=== PATIENT | male | born 1965 | race Caucasian/White ===

== ENCOUNTER → 2019-05-31 | Day surgery (SDC) | payer BC ==
[~2019-05-31] MED LIST: ACETAMINOPHEN 1000 MG/100 ML IV ONE; APRISO0.375 GM PO; ATORVASTATIN CA20 MG PO; BLOOD PRESSURE; BUPIVACAINE HCL 0.5% INJ 30 ML VIAL INJ ONE; CEFAZOLIN SOD 1 GM/NS 50ML 100 ML IV ONE; DEXAMETHASONE SOD PHOS INJ 4 MG/ML VIAL ONE; FENTANYL1 EAC1 TOP; GLYCOPYRROLATE INJ 1MG/ 5 ML SYR ONE; HYDROCODONE/APAP 5MG-325MG TAB ONE; HYDROMORPHONE 1MG/1ML INJ ONE; HYDROMORPHONE 2MG/ML 2 MG/ML ML ONE; KETOROLAC TROMETHAMINE 30 MG/ML VIAL ONE; LIDOCAINE 2%/ EPINEPHRINE 20ML MDV ONE; LIDOCAINE HCL 2% LOCAL INJ 5 ML SDV VIAL INJ ONE; MIDAZOLAM HCL 2 MG/2 ML VIAL ONE; ONDANSETRON HCL INJ 2MG/ML 2ML 2 MG/ML VIAL ONE; PROPOFOL IV EMULSION 10 MG/ML 20 ML VIAL ONE; ROPIVACAINE 0.5% 5 MG/ML 30 ML SDV ONE; SEVOFLURANE INHAL SOLN 250 ML PEN BTL ONE; ULTRAM50 MG PO
--- OUTSIDE RECORDS SUMMARY | 2019-05-31 06:11 | XMS REPORT | Encounter Summary ---
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 Gerber Padilla 3 [phone] Reason for Visit other - see typed reason Instructions 1. Acute meniscal tear, lateral hydrocodone 5 mg-acetaminophen 325 mg tablet orthopedic referral 2. Chronic insomnia 3. Generalized anxiety disorder zolpidem 10 mg tablet 4. Depression screening learning about depression 5. Body mass index 25-29 - overweight learning about healthy weight 6. Ulcerative colitis Discussion Note: None recorded. Plan of Care Reminders Provider Appointments None recorded. Lab None recorded. Referral Orthopedic Referral 12/17/2018 Procedures None recorded. Surgeries None recorded. Imaging None recorded. Medications Name Start Date azelastine 137 mcg (0.1 %) nasal spray aerosol Cutler 1 spray every day by nasal route as needed for 30 days. escitalopram 10 mg tablet take 1 tablet po daily hydrocodone 5 mg-acetaminophen 325 mg tablet Take 1 tablet every 6 hours by oral route. prednisone 10 mg tablet Take 1 tablet every day by oral route. zolpidem 10 mg tablet Take 1 tablet every day by oral route. Medications Administered None recorded. Vitals Height Weight BMI Blood Pressure 6 ft 3 in 222.6 lbs 27.8 kg/m2 (1) 142/92 mm[Hg] (2) 140/88 mm[Hg] Lab Results None recorded. Allergies Code Code System Name Reaction Severity Status Onset NKDA Problems Name Status Onset Date Source Generalized Anxiety Disorder Active 12/17/2018 Ulcerative Colitis Active 12/17/2018 Chronic Insomnia Active 12/17/2018 Procedures None recorded. Vaccine List None recorded. Social History Smoking Status Never Smoker Past Encounters 12/17/2018 Acute Meniscal Tear, Lateral; Chronic Insomnia; Generalized Anxiety Disorder; Depression Screening; Body Mass Index 25-29 - Overweight; Ulcerative Colitis Eliu Larry MD: [id number] [facility], [address], [place] [address], Ph. History of Present Illness Knee Reported By: Patient HPI: Location: right, anterior, lateral; s/p meniscal repair for same area. Quality: aching, stabbing. Severity: moderate, pain level 6/10. Duration: 17 days. Context: bending; onset after doing body squat. Aggravating Factors: weight bearing. Associated Symptoms: no weakness, no numbness, no tingling, no redness, no warmth, no catching/locking, no instability, swelling, popping/clicking. Previous Surgery: surgical procedure: Anxiety/Depression Reported By: Patient Notes: Doing well w current Tx Review of Systems Comprehensive General Adult ROS Reported By: Patient Constitutional: Constitutional: no significant weight gain, weight loss (10 lbs) Respiratory: Respiratory: no shortness of breath Gastrointestinal: Gastrointestinal: no abdominal pain, no nausea, no vomiting, normal appetite Neurologic: Neurologic: no weakness, no numbness, no dizziness, no headaches Psychiatric: Psych: no depression, no alcohol abuse, no anxiety, no suicidal thoughts, sleep disturbances Endocrine: Endocrine: no fatigue Physical Exam General Adult Exam (male) Reported By: Patient Constitutional: Level of Distress: NAD Psychiatric: Mental Status: active and alert. Orientation: to time, to place, to person Eyes: Pupils: PERRLA. EOM: EOMI Lungs: Respiratory effort: no dyspnea. Auscultation: breath sounds normal Cardiovascular: Heart Auscultation: RRR, no murmurs. Pulses including femoral / pedal: normal throughout Abdomen: Bowel Sounds: normal. Inspection and Palpation: soft, no tenderness, no masses. Liver: non-tender, no hepatomegaly. Spleen: non-tender, no splenomegaly Musculoskeletal:: Motor Strength and Tone: normal. Joints, Bones, and Muscles: normal movement of all extremities, tenderness. Extremities: no edema Neurologic: Gait and Station: irregular gait. Cranial Nerves: grossly intact. Sensation: grossly intact. Reflexes: DTRs 2+ bilaterally throughout
--- OUTSIDE RECORDS SUMMARY | 2019-05-31 06:11 | XMS REPORT | Clinical Summary ---
Author Author [facility] Organization [facility] Address Unknown Phone Unavailable Care Team Providers Care Accounts Receivable Specialist Name Role Phone Eliu Larry MD PCP Allergies No Known Allergies Medications End Date Status Medication Sig Dispensed Refills Start Date Active APRISO 0.375 gram 24 hr TAKE 4 3 capsule CAPSULES BY 6 MOUTH EVERY DAY Active HYDROcodone-acetaminophen TAKE 1 TABLET 0 (XODOL) 5-300 mg per BY MOUTH 8 tablet EVERY 4 TO 6 HOURS NEEDED FOR PAIN Active tadalafil (CIALIS) 20 mg Take 1 tablet 27 tablet 2 tablet (20 mg total) 8 by mouth daily as needed for erectile dysfunction. Active cetirizine-pseudoepHEDrin Take 1 tablet 60 tablet 11 e (ZyrTEC-D) 5-120 mg per by mouth 2 8 12 hr tablet (two) times a day. Active atorvastatin (LIPITOR) 20 TAKE 1 TABLET 90 tablet 1 MG tablet BY MOUTH 8 EVERY DAY Active dextromethorphan-guaifene Take 1 tablet 28 each 0 sin (MUCINEX DM) 30-600 by mouth 2 8 mg tablet extended (two) times a release 12 hr day as needed (congestion post nasal drip). 10/23/2019 Active clotrimazole-betamethason Apply 30 g 0 e (LOTRISONE) 1-0.05 % topically 2 8 cream (two) times a day. 09/15/2018 Discontinued fluticasone (FLONASE) 50 USE 2 SPRAYS 48 mL 1 mcg/actuation nasal spray EACH NOSTRIL 7 EVERYDAY 06/07/2018 Discontinued atorvastatin (LIPITOR) 20 TAKE 1 TABLET 90 tablet 0 05/15/201 MG tablet BY MOUTH 8 EVERY DAY 06/02/2018 Discontinued dextromethorphan-guaifene Take 1 tablet 28 each 0 sin (MUCINEX DM) 30-600 by mouth 2 8 mg tablet extended (two) times a release 12 hr day as needed (congestion post nasal drip). 06/01/2018 Discontinued zolpidem (AMBIEN) 10 mg TAKE 1 TABLET 30 tablet 0 tablet BY MOUTH 8 NIGHTLY NEEDED FOR SLEEP 06/02/2018 Discontinued zolpidem (AMBIEN) 10 mg TAKE 1 TABLET 30 tablet 0 tablet BY MOUTH 8 NIGHTLY NEEDED FOR SLEEP 06/02/2018 Discontinued UNABLE TO FIND Zirtec D 0 08/04/2018 Discontinued escitalopram (LEXAPRO) 10 Take 1 tablet 30 tablet 2 MG tablet (10 mg total) 8 by mouth daily for 90 days. 06/22/2018 Discontinued clonAZEPAM (KlonoPIN) 0.5 Take 1 tablet 40 tablet 0 MG tablet (0.5 mg 8 total) by mouth 3 (three) times a day as needed for anxiety (insomnia) for up to 30 days. 06/12/2018 promethazine-codeine Take 5 mL by 120 mL 0 (PHENERGAN with CODEINE) mouth every 6 8 6.25-10 mg/5 mL syrup (six) hours as needed for cough for up to 10 days. 08/04/2018 Discontinued dextromethorphan-guaifene Take 1 tablet 28 each 0 sin (MUCINEX DM) 30-600 by mouth 2 8 mg tablet extended (two) times a release 12 hr day as needed (congestion post nasal drip). 06/07/2018 levoFLOXacin (LEVAQUIN) Take 1 tablet 5 tablet 0 750 MG tablet (750 mg 8 total) by mouth daily for 5 days. 09/24/2018 Discontinued atorvastatin (LIPITOR) 20 TAKE 1 TABLET 90 tablet 0 06/08/201 MG tablet BY MOUTH 8 EVERY DAY 07/16/2018 Discontinued clonAZEPAM (KlonoPIN) 0.5 TAKE 1 TABLET 40 tablet 0 201 MG tablet BY MOUTH 3 8 TIMES A DAY NEEDED FOR ANXIETY/INSOM MARYJANE 08/15/2018 clonAZEPAM (KlonoPIN) 0.5 TAKE 1 TABLET 30 tablet 0 MG tablet BY MOUTH 3 8 TIMES A DAY NEEDED FOR ANXIETY/INSOM MARYJANE 09/15/2018 Discontinued amoxicillin (AMOXIL) 500 0 MG capsule 8 08/09/2018 azithromycin (ZITHROMAX) Take 2 6 tablet 0 250 MG tablet tablets the 8 first day, then 1 tablet daily for 4 days. 09/15/2018 Discontinued dextromethorphan-guaifene Take 1 tablet 28 each 0 sin (MUCINEX DM) 30-600 by mouth 2 8 mg tablet extended (two) times a release 12 hr day as needed (congestion post nasal drip). 08/14/2018 promethazine-codeine Take 5 mL by 120 mL 0 (PHENERGAN with CODEINE) mouth every 6 8 6.25-10 mg/5 mL syrup (six) hours as needed for cough for up to 10 days. 09/07/2018 Discontinued escitalopram (LEXAPRO) 10 Take 1 tablet 30 tablet 2 MG tablet (10 mg total) 8 by mouth daily for 90 days. 10/23/2018 Discontinued escitalopram (LEXAPRO) 10 Take 1 tablet 90 tablet 0 MG tablet (10 mg total) 8 by mouth daily for 90 days. 10/15/2018 clonAZEPAM (KlonoPIN) 0.5 Take 1 tablet 30 tablet 1 MG tablet (0.5 mg 8 total) by mouth 2 (two) times a day as needed for anxiety (insomnia) for up to 30 days. 09/22/2018 mupirocin (BACTROBAN) 2 % Apply 30 g 0 ointment topically to 8 left nostril twice a day 10/23/2018 Discontinued mometasone (ELOCON) 0.1 % Apply 30 g 0 cream topically to 8 left leg rash once daily 10/15/2018 ciprofloxacin (CIPRO) 500 Take 1 tablet 16 tablet 0 MG tablet (500 mg 8 total) by mouth 2 (two) times a day for 8 days. 10/15/2018 metroNIDAZOLE (FLAGYL) Take 1 tablet 24 tablet 0 500 MG tablet (500 mg 8 total) by mouth 3 (three) times a day for 8 days. 10/12/2018 acetaminophen-codeine Take 1 tablet 5 tablet 0 (TYLENOL WITH CODEINE #3) by mouth 8 300-30 mg per tablet every 6 (six) hours as needed for moderate pain for up to 5 doses. 10/28/2018 azithromycin (ZITHROMAX) Take 2 6 tablet 0 250 MG tablet tablets the 8 first day, then 1 tablet daily for 4 days. 11/02/2018 promethazine-codeine Take 5 mL by 120 mL 0 (PHENERGAN with CODEINE) mouth every 6 8 6.25-10 mg/5 mL syrup (six) hours as needed for cough for up to 10 days. 01/21/2019 escitalopram (LEXAPRO) 10 Take 1 tablet 90 tablet 1 MG tablet (10 mg total) 8 by mouth daily for 90 days. 11/22/2018 zolpidem (AMBIEN) 10 mg Take 1 tablet 30 tablet 1 tablet (10 mg total) 8 by mouth nightly as needed for sleep for up to 30 days. Status Hospital, Clinic, or Ordered Dose Route Frequency Start End Date Other Facility Date Administered Medication Ended methylPREDNISolone 40 mg IM once 06/02/20 acetate (DEPO-MEDROL) 18 8 injection 40 mgIndications: Acute frontal sinusitis, recurrence not specified Ended methylPREDNISolone 40 mg IM once 08/04/20 acetate (DEPO-MEDROL) 18 8 injection 40 mgIndications: Acute bronchitis, unspecified organism Active Problems Problem Noted Date Colitis 10/05/2018 Left tennis elbow 03/10/2017 Right elbow pain 12/12/2016 Lateral epicondylitis of right elbow 12/12/2016 Lateral epicondylitis of both elbows 07/29/2016 Encounters Care Team Description Date Type Specialty Eliu Larry MD 03/20/2019 Refill Family Medicine Eliu Larry MD 12/02/2018 Refill Family Medicine Eliu Larry MD 11/27/2018 Refill Family Medicine Eliu Larry MD Psychophysiological insomnia (Primary Dx); Tinea corporis; Acute secretory otitis media of both ears; Anemia due to other cause, not classified; Allergic rhinitis, unspecified seasonality, unspecified trigger; Panic attack as reaction to stress; Mixed hyperlipidemia; Diverticulitis of large intestine without perforation or abscess without bleeding; Ulcerative colitis without complications, unspecified location (HCC); Weight loss; BMI 27.0-27.9,adult 10/23/2018 Office Visit Family Medicine Felipa Krishnamurthy MD Bhatt, Sandeep, MD Colitis (Primary Dx) 10/04/2018 [facility] Internal Medicine - Encounter 10/07/2018 Eliu Larry MD 09/24/2018 Refill Family Medicine Lia Tate MA 09/22/2018 Telephone [facility] Eliu Smith MD Elevated transaminase level (Primary Dx) 09/20/2018 Orders Only Family Eliu Smith MD Routine check-up (Primary Dx); Mixed hyperlipidemia; Panic attack as reaction to stress; Dermatitis; Cellulitis of nostril; Psychophysiological insomnia; BMI 27.0-27.9,adult; Elevated blood pressure reading without diagnosis of hypertension; Erectile dysfunction, unspecified erectile dysfunction type; Chronic sinusitis, unspecified location; Lateral epicondylitis of both elbows; Acute secretory otitis media of both ears; Pharyngitis, unspecified etiology; Nocturia; Drug-induced constipation; Weight gain, abnormal 09/15/2018 Office Visit Family Lia Hebert MA 09/07/2018 Telephone [facility] Eliu Smith MD 08/10/2018 Refill Family Eliu Smith MD Acute bronchitis, unspecified organism (Primary Dx); Pharyngitis, unspecified etiology; Other fatigue; Panic attack as reaction to stress; Insomnia, unspecified type; Other specified anxiety disorders; Left ear pain 08/04/2018 Office Visit Family Eliu Smith MD 07/16/2018 Refill Family Eliu Smith MD 06/22/2018 Refill [facility] Eliu Smith MD 06/18/2018 Telephone [facility] Eliu Smith MD 06/07/2018 Refill Family Medicine Eliu Larry MD 06/03/2018 Telephone Family Medicine Eliu Larry MD Acute frontal sinusitis, recurrence not specified (Primary Dx); Acute secretory otitis media of both ears; Pharyngitis, unspecified etiology; Anxiety; Psychophysiological insomnia; Panic attacks; Other fatigue 06/02/2018 Office Visit Family Medicine Eliu Larry MD 06/01/2018 Refill Family Medicine after 05/30/2018 Family History Medical History Relation Name Comments Diabetes Brother Hypertension Brother Diabetes Father Rob Sherman Hearing loss Father Rob Sherman Heart disease Father Rob Sherman Stroke Father Rob 2002 Huntington Cancer Mother 4th Stage October 2014 Breast Cancer Diabetes Paternal Germán Sherman Grandfather Stroke Paternal Germán Sherman 1978 Grandfather Miscarriages / Paternal Irma late 1930's Stillbirths Grandmother Whit Vision loss Paternal Irma Legally blind Grandmother Whit Relation Name Status Comments Brother Father Rob Sherman Mother 4th Stage Breast Cancer Paternal Grandfather Dunlapgreg Sherman Paternal Grandmother Irma Sherman Social History Date Tobacco Use Types Packs/Day Years Used Never Smoker Smokeless Tobacco: Never Used Alcohol Use Drinks/Week oz/Week Comments Yes 2 Glasses of Socially wine 2 Cans of beer Sex Assigned at Date Recorded Not on file Industry Job Start Date Occupation Not on file Not on file Not on file Travel End Travel History Travel Start No recent travel history available. Last Filed Vital Signs Time Taken Vital Sign Reading 10/23/2018 9:40 AM [employer] Blood Pressure 136/88 10/23/2018 9:40 AM [employer] Pulse 98 10/23/2018 9:40 AM [employer] Temperature 36.7 C (98.1 F) 10/07/2018 10:49 AM [employer] Respiratory Rate 15 10/23/2018 9:40 AM [employer] Oxygen Saturation 100% - Inhaled Oxygen - Concentration 10/23/2018 9:40 AM [employer] Weight 99.8 kg (220 lb) 10/23/2018 9:40 AM [employer] Height 190.5 cm (6' 3") 10/23/2018 9:40 AM [employer] Body Mass Index 27.5 Plan of Treatment Health Maintenance Due Date Last Done Comments COLONOSCOPY SCREENING 2017 SHINGLES VACCINES (#1) 2017 INFLUENZA VACCINE 05/27/2019 Procedures Comments Procedure Name Priority Date/Time Associated Diagnosis HC COMPLETE BLD COUNT Routine 10/07/2018 W/AUTO DIFF 5:19 AM [employer] ESTIMATED GFR Routine 10/06/2018 5:36 AM [employer] BASIC METABOLIC PANEL Routine 10/06/2018 5:36 AM [employer] HC COMPLETE BLD COUNT Routine 10/06/2018 W/AUTO DIFF 5:36 AM [employer] GASTROINTESTINAL PANEL Routine 10/05/2018 11:52 AM [employer] ESTIMATED GFR Routine 10/05/2018 5:02 AM [employer] COMPREHENSIVE METABOLIC Routine 10/05/2018 PANEL 5:02 AM [employer] HC COMPLETE BLD COUNT Routine 10/05/2018 W/AUTO DIFF 5:[address] [address] [address] ABDOMEN PELVIS W STAT 10/04/2018 CONTRAST 11:59 PM [employer] ECG 12-LEAD Routine 10/04/2018 10:16 PM [employer] ECG ED PRELIMINARY Routine 10/04/2018 INTERPRETATION 10:14 PM [employer] ESTIMATED GFR STAT 10/04/2018 9:46 PM [employer] URINALYSIS SCREEN AND STAT 10/04/2018 MICROSCOPY, WITH REFLEX 9:46 PM [employer] TO CULTURE LIPASE LEVEL STAT 10/04/2018 9:46 PM [employer] AMYLASE LEVEL STAT 10/04/2018 9:46 PM [employer] COMPREHENSIVE METABOLIC STAT 10/04/2018 PANEL 9:46 PM [employer] HC COMPLETE BLD COUNT STAT 10/04/2018 W/AUTO DIFF 9:46 PM [employer] URINALYSIS, COMPLETE, Routine 09/15/2018 Erectile dysfunction, WITH REFLEX TO CULTURE 11:12 AM [employer] unspecified erectile dysfunction type TESTOSTERONE LEVEL, FREE Routine 09/15/2018 Erectile dysfunction, AND TOTAL, MALE 11:12 AM [employer] unspecified erectile dysfunction type TSH REFLEX TO T4F Routine 09/15/2018 Erectile dysfunction, 11:12 AM [employer] unspecified erectile dysfunction type PROSTATE SPECIFIC ANTIGEN Routine 09/15/2018 Erectile dysfunction, 11:12 AM [employer] unspecified erectile dysfunction type LIPID PANEL Routine 09/15/2018 Mixed hyperlipidemia 11:12 AM [employer] COMPREHENSIVE METABOLIC Routine 09/15/2018 Mixed hyperlipidemia PANEL 11:12 AM [employer] CBC WITH PLATELET AND Routine 09/15/2018 Routine check-up DIFFERENTIAL 11:12 AM [employer] CREATINE KINASE, TOTAL Routine 09/15/2018 Mixed hyperlipidemia (CPK) 11:12 AM [employer] after 05/30/2018 Results * CBC with platelet and differential (10/07/2018 5:19 AM [employer]) Only the most recent of 5 results within the time period is included. WBC 5.74 4.50 - 11.00 k/uL [facility] RBC 4.34 (L) 4.40 - 6.00 m/uL [facility] HGB 13.2 (L) 14.0 - 18.0 g/dL [facility] HCT 39.8 (L) 41.0 - 51.0 % [facility] MCV 91.7 82.0 - 100.0 fL [facility] MCH 30.4 27.0 - 34.0 pg [facility] MCHC 33.2 31.0 - 37.0 g/dL [facility] RDW - SD 45.5 37.0 - 55.0 fL [facility] MPV 9.1 8.8 - 13.2 fL [facility] Platelet count 170 150 - 400 k/uL [facility] Nucleated RBC 0.00 /100 WBC [facility] Neutrophils 65.8 39.0 - 69.0 % [facility] Lymphocytes 16.9 (L) 25.0 - 45.0 % [facility] Monocytes 13.4 (H) 0.0 - 10.0 % [facility] Eosinophils 3.1 0.0 - 5.0 % [facility] Basophils 0.3 0.0 - 1.0 % [facility] Specimen Blood Performing Organization Address [facility] Centercode Phone Number [address] [place] [address] PATHOLOGY AND GENOMIC MEDICINE [address] * Estimated GFR (10/06/2018 5:36 AM [employer]) Only the most recent of 3 results within the time period is included. [facility] Estimated GFR 69 mL/min/1.73 m2 [place] Comment: [facility] rpretation G1 >=90 Normal or high G2 60-89Mildly decreased [id number] Mildly to moderately decreased [id number] Moderately to severely decreased G4 15-29Severely decreased G5 <15Kidney failure The eGFR was calculated using the Chronic Kidney Disease Epidemiology Collaboration (CKD-EPI) equation. Interpretation is based on recommendations of the National Kidney Foundation-Kidney Disease Outcomes Quality Initiative (NKF-KDOQI) published in 2014. Specimen Plasma specimen Performing Organization Address [facility] Centerconh Phone Number [address] [place] [address] PATHOLOGY AND [facility] MEDICINE [address] * Basic metabolic panel (10/06/2018 5:36 AM [employer]) [facility] Sodium 142 135 - 148 mEq/L [facility] Potassium 4.2 3.5 - 5.0 mEq/L [facility] Chloride 105 98 - 112 mEq/L [facility] CO2 30 24 - 31 mEq/L [facility] Anion gap 7@ANIO 7 - 15 mEq/L [facility] BUN 6 6 - 20 mg/dL [facility] Creatinine 1.20 0.70 - 1.20 mg/dL [facility] Glucose 113 (H) 65 - 99 mg/dL [facility] Calcium 8.8 8.3 - 10.2 mg/dL [facility] Specimen Plasma specimen Performing Organization Address [facility]/Zipcode Phone Number [facility] DEPARTMENT [address] [place] [address] PATHOLOGY AND GENOMIC MEDICINE [facility] [address] [place] [id number] [facility] * Gastrointestinal panel (10/05/2018 11:52 AM [employer]) Gastrointestina Negative for all pathogens [facility] panel tested: [facility]IAN Negative for Salmonella HOSPITAL Negative for Campylobacter Negative for Diarrheagenic E coli/Shigella Negative for Shiga-like toxin-producing E coli Negative for Plesiomonas shigelloides Negative for Yersinia enterocolitica Negative for Vibrio species Negative for Clostridium difficile (Toxin A/B) Negative for Cryptosporidium Negative for Giardia lamblia Negative for Cyclospora cayeteanensis Negative for Entamoeba histolytica Negative for Adenovirus F 40/41 Negative for Astrovirus Negative for Norovirus GI/GII Negative for Rotavirus A Negative for Sapovirus Negative for Clostridium difficile toxin Negative for E coli 0157 This real-time PCR assay detects the presence of nucleic acids (RNA or DNA) for the gastrointestinal pathogens listed. A result of "Not-detected" does not exclude the possibility of the presence of one or more pathogens at concentrations less than the detectable limits of the assay. Comment: Specimen Information Specimen Source: Stool Specimen Site: Nonpreserved Specimen Stool - Nonpreserved Performing Organization Address City/[facility]/Zipcode Phone Number [facility] DEPARTMENT OF [address] [place] [address] PATHOLOGY [address] * Comprehensive metabolic panel (10/05/2018 5:02 AM [employer]) Only the most recent of 3 results within the time period is included. Sodium 146 135 - 148 mEq/L [facility] Potassium 4.7 3.5 - 5.0 mEq/L [facility] Chloride 107 98 - 112 mEq/L [facility] CO2 29 24 - 31 mEq/L [facility] Anion gap 10@ANIO 7 - 15 mEq/L [facility] BUN 9 6 - 20 mg/dL [facility] Creatinine 1.20 0.70 - 1.20 mg/dL [facility] Glucose 116 (H) 65 - 99 mg/dL [facility] Calcium 9.0 8.3 - 10.2 mg/dL [facility] Protein 6.4 6.3 - 8.3 g/dL [place] Comment: [facility] 4.6-7.0 g/dL 1 week 4.4-7.6 g/dL 7 months-1year 5.1-7.3 g/dL 1-2 years5.6-7 .5 g/dL >3 years6.0-8 .0 g/dL 18-150 6.3-8.3 g/dL Albumin 4.0 3.5 - 5.0 g/dL [facility] A/G ratio 1.7 0.7 - 3.8 [facility] Alkaline 89 40 - 129 U/L [place] phosphatase [facility] AST 22 10 - 50 U/L [facility] ALT 25 5 - 50 U/L [facility] Total bilirubin 0.4 0.0 - 1.2 mg/dL [facility] Specimen Plasma specimen Performing Organization Address City/State/[facility] Centercode Phone Number [facility] [id number] [place] [address] [place] [address] PATHOLOGY AND GENOMIC MEDICINE [facility] [id number] [place] [address] [place] [address] [facility] * CT Abdomen Pelvis W Contrast (10/04/2018 11:59 PM [employer]) Specimen Narrative Performed At EXAMINATION:CT ABDOMEN PELVIS W CONTRAST [facility]IANT CLINICAL HISTORY:Abd paindiverticulitis suspected TECHNIQUE: Multiple axial images of the abdomen and pelvis were obtained following intravenous administration of iodinated contrast. Sagittal and coronal computerized reformatted images were also obtained. CT imaging was performed with iterative reconstruction technique and/or automated exposure control to reduce radiation dose. COMPARISON:05/15/2016 IMPRESSION: Mild bibasilar atelectasis/scarring. Air cysts of the left lower lobe is seen with small fluid/debris layering within, unchanged since 2016. Liver, gallbladder, spleen, pancreas, adrenal glands are normal. Kidneys, ureters are normal. Bladder is unremarkable. No free intraperitoneal fluid or air. Atherosclerotic vascular calcifications are seen. Diverticulosis is seen. Air-fluid levels are seen throughout large bowel, with mild wall thickening and adjacent fat stranding, compatible with mild infectious or inflammatory colitis. Appendix is normal. No gastrointestinal tract obstruction. Some prominent posterior mediastinal periaortic lymph nodes are unchanged since 2016. No acute osseous abnormalities. CONCLUSION: Findings are compatible with mild infectious or inflammatory colitis. [facility]-[id number] Procedure Note Hm Interface, Radiology Results Incoming - 10/05/2018 12:13 AM [employer] EXAMINATION: CT ABDOMEN PELVIS W CONTRAST CLINICAL HISTORY: Abd pain diverticulitis suspected TECHNIQUE: Multiple axial images of the abdomen and pelvis were obtained following intravenous administration of iodinated contrast. Sagittal and coronal computerized reformatted images were also obtained. CT imaging was performed with iterative reconstruction technique and/or automated exposure control to reduce radiation dose. COMPARISON: 05/15/2016 IMPRESSION: Mild bibasilar atelectasis/scarring. Air cysts of the left lower lobe is seen with small fluid/debris layering within, unchanged since 2016. Liver, gallbladder, spleen, pancreas, adrenal glands are normal. Kidneys, ureters are normal. Bladder is unremarkable. No free intraperitoneal fluid or air. Atherosclerotic vascular calcifications are seen. Diverticulosis is seen. Air-fluid levels are seen throughout large bowel, with mild wall thickening and adjacent fat stranding, compatible with mild infectious or inflammatory colitis. Appendix is normal. No gastrointestinal tract obstruction. Some prominent posterior mediastinal periaortic lymph nodes are unchanged since 2016. No acute osseous abnormalities. CONCLUSION: Findings are compatible with mild infectious or inflammatory colitis. [facility]-[id number] Performing Organization Address City/State/Zipcode Phone Number [facility] [address] [place] [address] * ECG 12 lead (10/04/2018 10:16 PM [employer]) Ventricular 105 [facility] rate Atrial rate 105 [facility] NV interval 122 [facility] QRSD interval 82 [facility] QT interval 326 [facility] QTC interval 430 [facility] P axis 1 52 [facility] QRS axis 1 49 [facility] T wave axis 19 [facility] EKG impression Sinus tachycardia-Otherwise [facility] M[facility] normal ECG-In automated comparison with ECG of 15-SEP-2017 09:16,-No significant change was found- Specimen Narrative Performed At Performing Organization Address City/State/Zipcode Phone Number [facility] MUSE [address] [place] [address] * ECG ED Preliminary Interpretation - Not an Order (10/04/2018 10:14 PM [employer]) Narrative Performed At Felipa Krishnamurthy MD 10/05/2018 12:56 AM ECG ED Preliminary Interpretation - Not an Order Performed by: Felipa Krishnamurthy MD Authorized by: Felipa Krishnamurthy MD ECG reviewed by ED Physician in the absence of a chief controller station: yes Interpretation: Interpretation: normal Rate: ECG rate:105 ECG rate assessment: tachycardic Rhythm: Rhythm: sinus tachycardia Ectopy: Ectopy: none QRS: QRS axis:Normal Conduction: Conduction: normal ST segments: ST segments:Non-specific T waves: T waves: normal * Urinalysis screen and microscopy, with reflex to culture (10/04/2018 9:46 PM [employer]) Specimen site Clean catch [facility] Color, UA Yellow [facility] Appearance, UA Clear [facility] Specific 1.017 1.001 - 1.035 [place] gravity, [facility] pH, UA 6.0 5.0 - 8.5 [facility] Protein, UA Negative Negative [facility] Glucose, UA Negative Negative [facility] Ketones, UA Negative Negative [facility] Bilirubin, UA Negative Negative [facility] Blood, UA Negative Negative [facility] Nitrite, UA Negative Negative [facility] Urobilinogen, Negative <2.0 [facility] Leukocyte Negative Negative [place] esterase, UA [facility] Round Few 0 - 1 /HPF [place] epithelial [facility] [facility] cells, [facility] WBC, UA 0-5 0 - 1 /HPF [facility] RBC, UA 0-5 0 - 5 /HPF [facility] Bacteria, UA Trace None seen [facility] Yeast, UA None seen [facility] Yeast with None seen [place] pseudohyphae, [facility] Hyaline casts, 3-5 /LPF [facility] Specimen Urine Performing Organization Address [facility] Centerconh Phone Number [address] [place] [address] PATHOLOGY AND GENOMIC MEDICINE [address] * Lipase level (10/04/2018 9:46 PM A[employer]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 LIFE LABORER) Lipase 24 13 - 60 U/L [facility] Specimen Plasma specimen Performing Organization Address [facility] Phone Number [address] [place] [address] PATHOLOGY AND [facility] MED[facility] [address] * Amylase level (10/04/2018 9:46 PM A[employer]ATIC LIFE LABORER) Amylase 80 (H) 13 - 73 U/L [facility] Specimen Plasma specimen Performing Organization Address [facility] Phone Number [address] [place] [address] PATHOLOGY AND GENOMIC MEDICINE [address] * URINALYSIS, COMPLETE, WITH REFLEX TO CULTURE (09/15/2018 11:12 AM A[employer]ATIC LIFE LABORER) Color, UA DARK YELLOW YELLOW [facility] Appearance CLEAR CLEAR [facility] Specific 1.021 1.001 - 1.035 [facility] gravity, urine [facility] [place] pH, urine 7.5 5.0 - 8.0 [facility] [place] Glucose, urine NEGATIVE NEGATIVE [facility] Bilirubin, UA NEGATIVE NEGATIVE [facility] Ketones, UA NEGATIVE NEGATIVE [facility] Occult blood, NEGATIVE NEGATIVE [facility] [place] Protein, UA NEGATIVE NEGATIVE [facility] Nitrite, UA NEGATIVE NEGATIVE [facility] Leukocyte NEGATIVE NEGATIVE [facility] esterase, [facility] [place] WBC, UA NONE SEEN < OR=5 /HPF [facility] [place] RBC, UA NONE SEEN < OR=2 /HPF [facility] Squamous NONE SEEN < OR=5 /HPF [facility] epithelial [facility]ST[facility] cells, UA [place] Bacteria, UA NONE SEEN NONE SEEN /HPF [facility] Hyaline casts, NONE SEEN NONE SEEN /LPF [facility] [place] Reflex NO CULTURE INDICATED [facility] Specimen Narrative Performed At FASTING:YES [facility] FASTING: YES Resulting Agency Comment Performing Organization Information: Site ID: Art Name: [facility] Lab Address: [address] [place] [id number] Director: Natalie Ball Performing Organization Address [facility] Phone Number [facility] [place] [address] [place] [address] * TSH reflex to T4 (09/15/2018 11:12 AM A[employer]ATIC LIFE LABORER) TSH reflex to 0.71 0.40 - 4.50 mIU/L [facility] [place] Specimen Blood Narrative Performed At FASTING:YES [facility] FASTING: YES Resulting Agency Comment Performing Organization Information: Site ID: [id number] Name: [facility] Lab Address: [address] [place] [phone] Director: Natalie Ball Performing Organization Address [facility] Phone Number [facility] [place] [address] * Testosterone level, free and total, male (09/15/2018 11:12 AM A[employer]ATIC LIFE LABORER) Testosterone, 449 250 - 1,100 ng/dL [facility] total, lc/ms/ms [facility] SANDRA NORRIS Testosterone, 73.5 35.0 - 155.0 pg/mL [facility] free Comment: DIAGNOSTICS Data from J Clin Invest FLORES 1974:53:819-828 and J Clin NORRIS Endocrinol Metab 1973;36:8279-7405. Men with clinically significant hypogonadal symptoms and testosterone values repeatedly in the range of the 200-300 ng/dL or less, may benefit from testosterone treatment after adequate risk and benefits counseling. For additional information, please refer to http://education.Enjoi.Peerlyst/faq/WSQ483 (This link is being provided for informational/ educational purposes only.) This test was developed and its analytical performance characteristics have been determined by [facility]. It has not been cleared or approved by the US Food and Drug Administration. This assay has been validated pursuant to the CLIA regulations and is used for clinical purposes. Specimen Narrative Performed At FASTING:YES [facility] FASTING: YES Resulting Agency Comment Performing Organization Information: Site ID: [id number] Name: [facility] Address: [address] [place] [address] Director: Tyrell Patton M.D., Ph.D Performing Organization Address [facility] Phone Number HIEN FLORES [address] [place] [address] [place] * Prostate specific antigen (09/15/2018 11:12 AM A[employer]ATIC LIFE LABORER) PSA 0.5 < OR=4.0 ng/mL [facility] Comment: DIAGNOSTICS The total PSA value from this [place] assay system is standardized against the WHO standard. The test result will be approximately 20% lower when compared to the equimolar-standardized total PSA (Wyatt Goodview). Comparison of serial PSA results should be interpreted with this fact in mind. This test was performed using the Siemens chemiluminescent method. Values obtained from different assay methods cannot be used interchangeably. PSA levels, regardless of value, should not be interpreted as absolute evidence of the presence or absence of disease. Specimen Narrative Performed At FASTING:YES [facility] FASTING: YES Resulting Agency Comment Performing Organization Information: Site ID: [id number] Name: [facility] Lab Address: [address] [place] [phone] Director: Natalie Ball Performing Organization Address [facility] Phone [place] [address] * Creatine kinase, total (CPK) (09/15/2018 11:12 AM AQUATIC LIFE LABORER) Pathologist [facility] Creatine kinase 114 44 - 196 U/L [facility] Specimen Narrative Performed At FASTING:YES [facility] FASTING: YES Resulting Agency Comment Performing Organization Information: Site ID: [id number] Name: [facility] Lab Address: [address] [place] [phone] Director: Natalie Ball Performing Organization Address [facility] Cent[facility] [place] [address] * Lipid panel (09/15/2018 11:12 AM AQUATIC LIFE LABORER) Cholesterol, 201 (H) <200 mg/dL [facility] total [facility] HDL cholesterol 56 >40 mg/dL [facility] Triglycerides 129 <150 mg/dL [facility] LDL cholesterol 121 (H) mg/dL (calc) [facility] calculated Comment: DIAGNOSTICS Reference range: <100 [place] Desirable range <100 mg/dL for primary prevention; <70 mg/dL for patients with CHD or diabetic patients with > or=2 CHD risk factors. LDL-C is now calculated using the Karen calculation, which is a validated novel method providing better accuracy than the Friedewald equation in the estimation of LDL-C. Franklyn LIRA et al. KARLY. 2013;310(19): 6101-7957 (http://education.FibroGen.Peerlyst/faq/WAO801) Cholesterol/HDL 3.6 <5.0 (calc) [facility] [place] Non-HDL 145 (H) <130 mg/dL (calc) [facility] cholesterol Comment: DIAGNOSTICS For patients with diabetes [place] plus 1 major ASCVD risk factor, treating to a non-HDL-C goal of <100 mg/dL (LDL-C of <70 mg/dL) is considered a therapeutic option. Specimen Narrative Performed At FASTING:YES [facility] FASTING: YES Resulting Agency Comment Performing Organization Information: Site ID: [id number] Name: [facility] Lab Address: [address] [place] [id number] Director: Natalie Ball Performing Organization Address City/State/Zipcode Phone Number [facility] [place] [address] [place], [place] [phone] after 05/30/2018 Insurance Type Payer Benefit Subscriber ID Effective Phone Address Plan / Dates Group HMO AETNA AETNA xxxxxxxxxx 2005-P HMO,POS,EP resent O, MC/EC Advance Directives Patient has advance care planning documents, and code status on file. For more i nformation, please contact: Shiraz Freire [address] [place] [address] Date Inactivated Comments Code Status Date Activated 10/07/2018 4:59 PM Full Code 10/05/2018 2:01 AM Code Status decision reached by: Patient
--- OUTSIDE RECORDS SUMMARY | 2019-05-31 06:11 | XMS REPORT | Encounter Summary ---
Author Organization Unknown Address [address] [place] [address] Phone [phone] Care Team Providers Care Wind Energy Project Manager Name Role Phone Dr. Gerber Padilla 3 [phone] Eliu Larry MD 3 [phone] Sander Mitchell MD 107 [phone] Lazaro Handy MD 113 [phone] Noemi Hernandez MD 130 [phone] Reason for Visit Annual physical - male with PSA Instructions 1. Adult health examination urinalysis, dipstick CBC w/ auto diff TSH, serum or plasma 2. Essential hypertension olmesartan 20 mg tablet electrocardiogram 3. Mixed hyperlipidemia atorvastatin 20 mg tablet lipid panel, serum CK (creatine kinase), total, serum CMP, serum or plasma 4. Screening for malignant neoplasm of colon 5. Screening for malignant neoplasm of prostate prostate cancer screening: care instructions PSA, serum or plasma 6. Acute infective otitis externa Ciprodex 0.3 %-0.1 % ear drops,suspension 7. Tear of meniscus of knee hydrocodone 5 mg-acetaminophen 325 mg tablet 8. Primary erectile dysfunction testosterone, total, serum testosterone, free, serum tadalafil 20 mg tablet 9. Generalized anxiety disorder 10. Ulcerative colitis 11. Chronic insomnia 12. Body mass index 25-29 - overweight learning about healthy weight 13. Serous otitis media 14. Snoring 15. Perennial allergic rhinitis Discussion Note: None recorded. Plan of Care Reminders Provider Appointments None recorded. Lab Urinalysis, Dipstick 05/05/2019 [facility] Lipid Panel, Serum 05/05/2019 [facility] CK (Creatine Kinase), Total, Serum 05/05/2019 [facility] CMP, Serum or Plasma 05/05/2019 [facility] CBC W/ Auto Diff 05/05/2019 [facility] TSH, Serum or Plasma 05/05/2019 [facility] Testosterone, Total, Serum 05/05/2019 [facility] Testosterone, Free, Serum 05/05/2019 [facility] PSA, Serum or Plasma 05/05/2019 [facility] Referral None recorded. Procedures None recorded. Surgeries None recorded. Imaging Electrocardiogram 05/05/2019 [facility] Medications Name Start Date alprazolam 0.5 mg tablet 1 tablet once a day as needed Apriso 0.375 gram capsule,extended release 4 capsules once a day atorvastatin 20 mg tablet Take 1 tablet every day by oral route for 90 days. Ciprodex 0.3 %-0.1 % ear drops,suspension INSTILL 4 DROPS INTO AFFECTED EAR(S) BY OTIC ROUTE 2 TIMES PER DAY FOR 7 DAYS hydrocodone 5 mg-acetaminophen 325 mg tablet Take 1 tablet every 6 hours by oral route. olmesartan 20 mg tablet Take 1 tablet every day by oral route for 30 days. tadalafil 20 mg tablet Take 1 tablet every day by oral route as needed for 90 days. zolpidem 10 mg tablet Take 1 tablet every day by oral route. Medications Administered None recorded. Vitals Height Weight BMI Blood Pressure 6 ft 3 in 229.8 lbs 28.7 kg/m2 (1) 143/88 mm[Hg] (2) 150/95 mm[Hg] Lab Results None recorded. Allergies Code Code System Name Reaction Severity Status Onset NKDA Problems Name Status Onset Date Source Generalized Anxiety Disorder Active 12/17/2018 Ulcerative Colitis Active 12/17/2018 Chronic Insomnia Active 12/17/2018 Cataract Active 05/05/2019 Perennial Allergic Rhinitis Active 05/05/2019 Snoring Active 05/05/2019 Procedures Date Name Performed by 10/27/2014 Orthopedic Surgery Information not available 05/05/2019 Electrocardiogram [facility] [address] [place] [id number] (Work Place) Vaccine List None recorded. Social History Smoking Status Never Smoker Past Encounters 05/05/2019 Adult Health Examination; Essential Hypertension; Mixed Hyperlipidemia; Screening for Malignant Neoplasm of Colon; Screening for Malignant Neoplasm of Prostate; Acute Infective Otitis Externa; Tear of Meniscus of Knee; Primary Erectile Dysfunction; Generalized Anxiety Disorder; Ulcerative Colitis; Chronic Insomnia; Body Mass Index 25-29 - Overweight; Serous Otitis Media; Snoring; Perennial Allergic Rhinitis Eliu Larry MD: [address], [place] [address], Ph. History of Present Illness Note:Here for Physical. Reports left ear pain after jumping into pool. Still with right knee pain. Has not been able to see Ortho since last appt.<div> Started seeing Psych since December. No longer taking Lexapro and using Xanax only sporadically. No addnl Rx added.</div><div>No Hx HTN. At home BP 140 -155/70 -92 for past 2 - 3 months. Relates to not being able to exercise.
<div> Colonoscopy - UTD - Sep 2018</div><div>FH DM and Dementia - Father; Breast CA - Mother</div></div> Review of Systems Comprehensive General Adult ROS Reported By: Patient Constitutional: Constitutional: no fever, no night sweats, no significant weight loss, weight gain (15lbs) Eyes: Eyes: no dry eyes, no irritation, vision change ENMT: Ears: no difficulty hearing, ear pain; no tinnitus. Nose: no frequent nosebleeds, no nose problems, no sinus problems; better after sinuplasty. Mouth/Throat: no sore throat, no dry mouth, no mouth ulcers, no teeth problems, snoring Cardiovascular: Cardiovascular: no chest pain, no arm pain on exertion, no shortness of breath when walking, no shortness of breath when lying down, no palpitations, no lightheadedness; No PND Respiratory: Respiratory: no cough, no wheezing, no shortness of breath, no sleep apnea Gastrointestinal: Gastrointestinal: no abdominal pain, no nausea, no vomiting, no constipation, normal appetite, no dyspepsia, no GERD, frequent diarrhea; No recent BRBPR or melena Genitourinary: Genitourinary: no difficulty urinating, no hematuria, no increased frequency; no dysuria; no penile rashes or discharge, no testicular pain, swelling or masses, libido normal, erectile function decreased, Rx helps Musculoskeletal: Musculoskeletal: no muscle aches, no muscle weakness, no swelling in the extremities, arthralgias/joint pain, back pain; 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 Integumentary: Skin: no abnormal mole, no jaundice, no rashes, no laceration; no dryness, no excess hair loss Neurologic: Neurologic: no weakness, no numbness, no dizziness, no headaches, no tremor Psychiatric: Psych: no depression, no anxiety, sleep disturbances; memory and concentration good Endocrine: Endocrine: no fatigue; no increased thirst, no increased hunger, no cold intolerance, no heat intolerance Hematologic/Lymphatic: Hematologic/Lymphatic no swollen glands, no bruising, no excessive bleeding Allergic/Immunologic: Allergy/Immunologic: no sinus pressure, runny nose, frequent sneezing; occ with allergies Physical Exam General Adult Exam (male) Reported By: Patient Constitutional: General Appearance: healthy-appearing, overweight. Level of Distress: NAD Psychiatric: Insight: good judgement. Mental Status: active and alert, normal mood, normal affect. Orientation: to time, to place, to person. Memory: recent memory normal, remote memory normal Head: Head: normocephalic, atraumatic Eyes: Lids and Conjunctivae: non-injected, no discharge, no pallor. Pupils: PERRLA. Corneas: grossly intact. EOM: EOMI. Lens: clear. Sclerae: non-icteric. Vision: peripheral vision grossly intact, acuity grossly intact ENMT: Ears: no lesions on external ear, EACs clear, TMs clear. Hearing: no hearing loss. Nose: nares patent, nasal passages clear, no sinus tenderness, no nasal discharge. Lips, Teeth, and Gums: no mouth or lip ulcers, no bleeding gums, normal dentition. Oropharynx: moist mucous membranes, no erythema, no exudates, tonsils not enlarged Neck: Neck: supple, trachea midline, no masses, FROM. Lymph Nodes: no cervical LAD. Thyroid: no enlargement, non-tender, no nodules Lungs: Respiratory effort: no dyspnea. Auscultation: breath sounds normal, no wheezing, no rales/crackles, no rhonchi Cardiovascular: Heart Auscultation: RRR, normal S1, normal S2, no murmurs. Neck vessels: no carotid bruits. Pulses including femoral / pedal: normal throughout Abdomen: Bowel Sounds: normal. Inspection and Palpation: soft, no tenderness, no masses, no CVA tenderness. Liver: non-tender, no hepatomegaly. Spleen: non- tender, no splenomegaly. Hernia: none palpable Male : Penis: no lesions, no discharge, circumcised. Scrotum: no swelling, no tenderness. Testes: palpable bilaterally, not enlarged. Prostate: symmetrical, not enlarged, non-tender, smooth / no nodules Rectal: Anus, Perineum, Rectum: normal tone, no hemorrhoids, no fissures, no masses Musculoskeletal:: Motor Strength and Tone: normal, normal tone. Joints, Bones, and Muscles: no bony abnormalities; Right knee with decreased flexion, tender over joint lines. Extremities: no cyanosis, no edema, no varicosities Neurologic: Gait and Station: irregular gait. Cranial Nerves: grossly intact. Sensation: grossly intact. Reflexes: DTRs 2+ bilaterally throughout. Coordination and Cerebellum: no tremor Skin: Inspection and palpation: no rash, no lesions, good turgor, no jaundice. Nails: normal Back: Thoracolumbar Appearance: normal curvature
--- OUTSIDE RECORDS SUMMARY | 2019-05-31 06:11 | XMS REPORT | Summary of Care ---
Author Author [facility] [place] [address] Organization [facility] [place] [address] Address Unknown Phone Unavailable Encounter HQ Janny_guevara(FIN) [id number] Date(s): 02/18/19 - 02/18/19 [facility] [place] [address] [facility] [address] [place] [address]- [phone] Discharge Disposition: Home or Self Care Vital Signs Most recent to 1 oldest [Reference Range]: Height 190.5 cm (02/18/19 1:51 PM) Temperature Oral 97.9 DegF [96.4-99.1 DegF] (02/18/19 1:51 PM) Blood Pressure 151/94 mmHg [90-140/60-90 mmHg] *HI* (02/18/19 1:51 PM) Respiratory Rate 16 BRMIN [14-20 BRMIN] (02/18/19 1:51 PM) Peripheral Pulse 86 bpm Rate [60-100 bpm] (02/18/19 1:51 PM) Weight 106.455 kg (02/18/19 1:51 PM) Body Mass Index 29.33 m2 (02/18/19 1:51 PM) Problem List Condition Effective Dates Status Health Status Informant Cough(Confirmed) Active Elevated blood Active pressure reading(Confirmed) PND (post-nasal Active drip)(Confirmed) Sinusitis(Confirmed) Active Sore Active throat(Confirmed) Allergies, Adverse Reactions, Alerts No Known Medication Allergies Medications Azithromycin 5 Day Dose Pack 250 mg oral tablet See Instructions, Take 2 tablets by mouth the first day then 1 tablet by mouth d ays 2-5., X 5 day, # 6 tab, 0 Refill(s), Pharmacy: [facility]/pharmacy #[id number] Start Date: 02/18/19 Stop Date: 02/23/19 Status: Ordered Tessalon 200 mg oral capsule 200 mg=1 cap, PO, TID, X 10 day, # 30 cap, 0 Refill(s), Pharmacy: [facility]/pharmacy # [id number] Start Date: 02/18/19 Stop Date: 02/28/19 Status: Ordered Results No data available for this section Immunizations Given and Recorded Vaccine Date Status Refusal Reason influenza virus vaccine, inactivated 08/03/18 Recorded influenza virus vaccine, inactivated 07/27/17 Recorded Procedures Procedure Date Related Diagnosis Body Site Status Knee joint operation Completed Nose operation Completed Shoulder joint operations Completed Tonsillectomy Completed Social History Social History Type Response Substance Abuse Use: None. Exercise Exercise frequency: Daily. 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 Alcohol Current Smoking Status Never smoker; Exposure to Tobacco Smoke None; Cigarette Smoking Last 365 Days No; Reg Smoking Cessation Counseling No entered on: 02/18/19 Assessment and Plan No data available for this section
--- OUTSIDE RECORDS SUMMARY | 2019-05-31 06:11 | XMS REPORT | Summary of Care ---
Author Author [facility] Primary [facility] [place] [address] Organization [facility] Care [place] [address] Address Unknown Phone Unavailable Encounter HQ Janny_[email or web address](FIN) [id number] Date(s): 11/04/17 - 11/04/17 [facility] [place] [address] [facility] [address] [place] [address]- [phone] Discharge Disposition: Home or Self Care Vital Signs Most recent to 1 oldest [Reference Range]: Height 190.5 cm (11/04/17 3:08 PM) Temperature Oral 98 DegF [96.4-99.1 DegF] (11/04/17 3:08 PM) Blood Pressure 110/73 mmHg [90-140/60-90 mmHg] (11/04/17 3:08 PM) Peripheral Pulse 96 bpm Rate [60-100 bpm] (11/04/17 3:08 PM) Weight 95.909 kg (11/04/17 3:08 PM) Body Mass Index 26.43 m2 (11/04/17 3:08 PM) Problem List Condition Effective Dates Status Health Status Informant Cough(Confirmed) Active Sore Active throat(Confirmed) Allergies, Adverse Reactions, Alerts Substance Reaction Severity Status NKDA Active Medications Astelin 137 mcg/inh nasal spray 2 spray, NASAL, BID, # 1 ea, 0 Refill(s), Pharmacy: [facility]/pharmacy #[id number] Start Date: 11/04/17 Stop Date: 11/11/17 Status: Ordered codeine-guaiFENesin 10 mg-100 mg/5 mL oral syrup 10 mL, PO, Bedtime, PRN for cough, X 7 day, # 100 mL, 0 Refill(s) Start Date: 11/04/17 Stop Date: 11/11/17 Status: Ordered TamiFLU 75 mg oral capsule 75 mg, PO, Q12H, X 5 day, # 10 cap, 0 Refill(s) Start Date: 11/04/17 Stop Date: 11/09/17 Status: Ordered Results No data available for this section Immunizations Given and Recorded Vaccine Date Status Refusal Reason influenza virus vaccine, inactivated 07/27/17 Recorded Procedures [...] Reg Smoking Cessation Counseling No entered on: 11/04/17 Assessment and Plan No data available for this section
--- OUTSIDE RECORDS SUMMARY | 2019-05-31 06:11 | XMS REPORT | Summary of Care ---
Author Organization Unknown Address Unknown Phone Unavailable Encounter HQ Encntr_alias(FIN) [id number] Date(s): 01/05/15 - 01/05/15 [facility] Outpatient Imaging - [address] [phone] Discharge Disposition: Home Physician Attending: Eliu Larry MD Vital Signs No data available for this section Problem List No data available for this section Allergies, Adverse Reactions, Alerts No data available for this section Medications No data available for this section Results No data available for this section Immunizations No data available for this section Procedures No data available for this section Social History No data available for this section Assessment and Plan No data available for this section
--- OUTSIDE RECORDS SUMMARY | 2019-05-31 06:11 | XMS REPORT ---
Author Author [facility] Address Unknown Phone Unavailable Care Team Providers Care Factory Assembler Name Role Phone Unavailable Unavailable Problems This patient has no known problems. Allergies, Adverse Reactions, Alerts This patient has no known allergies or adverse reactions. Medications This patient has no known medications.
--- OUTSIDE RECORDS SUMMARY | 2019-05-31 06:11 | XMS REPORT | Summary of Care ---
Author Author [facility] Primary [facility] [place] [address] Organization [facility] [place] [address] Address Unknown Phone Unavailable Encounter HQ Janny_guevara(FIN) [id number] Date(s): 02/18/19 - 02/18/19 [facility] Primary [facility] [place] [address] [facility] [facility] [address] [place] [address]- [phone] Discharge Disposition: Home or Self Care Vital [...] day, # 6 tab, 0 Refill(s), Pharmacy: [facility]/pharmacy #[id number] Start Date: 02/18/19 Stop Date: 02/23/19 Status: Ordered Tessalon 200 mg oral capsule 200 mg=1 cap, PO, TID, X 10 day, # 30 cap, 0 Refill(s), Pharmacy: [facility]/pharmacy # [id number] Start Date: 02/18/19 Stop Date: [...]
--- OUTSIDE RECORDS SUMMARY | 2019-05-31 06:11 | XMS REPORT | Summary of Care ---
Author Author [facility] Primary [facility] [place] [facility] Organization [facility] 66 Address Unknown Phone Unavailable Encounter HQ [employer]_guevara(FIN) [id number] Date(s): 11/04/17 - 11/04/17 [facility] Primary [facility] [place] [address] [facility] [address] [place] [address]- [phone] Discharge Disposition: Home or Self Care Vital [...] BID, # 1 ea, 0 Refill(s), Pharmacy: [facility]/pharmacy #[id number] Start Date: 11/04/17 Stop Date: 11/11/17 Status: Ordered codeine-guaiFENesin 10 mg-100 mg/5 mL oral syrup 10 mL, PO, Bedtime, PRN for cough, X 7 day, # 100 mL, 0 Refill(s) Start Date: 11/04/17 Stop Date: 11/11/17 Status: Completed TamiFLU 75 mg oral capsule 75 mg, PO, Q12H, X 5 day, # 10 cap, 0 Refill(s) Start Date: 11/04/17 Stop Date: 11/09/17 Status: Completed Results No data available for this section [...]
--- OUTSIDE RECORDS SUMMARY | 2019-05-31 06:11 | XMS REPORT | Continuity of Care Document ---
Author Author [facility] Address Unknown Phone Unavailable Care Team Providers Care Care Assistant Name Role Phone [employer] Unavailable Unavailable Problems Problem Status Onset Date Classification Date Reported Comments Source Ulcerative colitis 12/17/2018 Diagnosis 12/17/2018 [facility] Body mass index 25-29 - overweight 12/17/2018 Diagnosis 12/17/2018 [facility] Depression screening 12/17/2018 Diagnosis 12/17/2018 [facility] Acute meniscal tear, lateral 12/17/2018 Diagnosis 12/17/2018 [facility] Generalized anxiety disorder 12/17/2018 Diagnosis 12/17/2018 [facility] Chronic insomnia 12/17/2018 Diagnosis 12/17/2018 [facility] Generalized Anxiety Disorder 12/17/2018 Problem 12/17/2018 [facility] Ulcerative Colitis 12/17/2018 Problem 12/17/2018 [facility] Chronic Insomnia 12/17/2018 Problem 12/17/2018 [facility] 097 - OTH UNSPEC SY Active 04/27/2015 [facility] [place] 724.2 - LUMBAGO Active 01/05/2015 [facility] [place] Cough Active Problem 02/21/2019 [facility] Sore throat Active Problem 02/21/2019 [facility] Elevated blood pressure reading Active Problem 02/21/2019 [facility] PND (Confirmed) Active Problem 02/21/2019 [facility] Sinusitis Active Problem 02/21/2019 [facility] Medications Medication Details Route Status Patient Instructions Ordering Provider Order Date Source benzonatate 200 MG Oral Capsule [Tessalon] 200 mg=1 cap, PO, TID, X 10 day, # 30 cap, 0 Refill(s), Pharmacy: [facility]/pharmacy #[id number] Active 02/18/2019 [facility] Azithromycin 5 Day Dose Pack 250 mg oral tablet See Instructions, Take 2 tablets by mouth the first day then 1 tablet by mouth days 2-5., X 5 day, # 6 tab, 0 Refill(s), Pharmacy: [facility]/pharmacy #[id number] Active 02/18/2019 [facility] Azelastine hydrochloride 0.137 MG/ACTUAT Metered Dose Nasal [place] [Astelin] 2 spray, NASAL, BID, # 1 ea, 0 Refill(s), Pharmacy: [facility]/pharmacy #[id number] Active 11/04/2017 [facility] Codeine Phosphate 2 MG/ML / Guaifenesin 20 MG/ML Oral Solution 10 mL, PO, Bedtime, PRN for cough, X 7 day, # 100 mL, 0 Refill(s) No Longer Active 11/04/2017 [facility] Oseltamivir 75 MG Oral Capsule [Tamiflu] 75 mg, PO, Q12H, X 5 day, # 10 cap, 0 Refill(s) No Longer Active 11/04/2017 [facility] Azelastine hydrochloride 0.137 MG/ACTUAT Metered Dose Nasal [place]rath azelastine 137 mcg (0.1 %) nasal spray aerosol Conrath 1 spray every day by nasal route as needed for 30 days. Active [facility] Escitalopram 10 MG Oral Tablet escitalopram 10 mg tablet take 1 tablet po daily Active [facility] Acetaminophen 325 MG / Hydrocodone Bitartrate 5 MG Oral Tablet hydrocodone 5 mg-acetaminophen 325 mg tablet Take 1 tablet every 6 hours by oral route. Active [facility] Prednisone 10 MG Oral Tablet prednisone 10 mg tablet Take 1 tablet every day by oral route. Active [facility] Zolpidem tartrate 10 MG Oral Tablet zolpidem 10 mg tablet Take 1 tablet every day by oral route. [facility] Allergies, Adverse Reactions, Alerts Substance Category Reaction Severity Reaction type Status Date Reported Comments Source No Known Medication Allergies Assertion Drug allergy [facility] Immunizations Immunization Date Given Site Status Last Updated Comments Source influenza virus vaccine, inactivated 08/03/2018 completed [facility] influenza virus vaccine, inactivated 07/27/2017 completed [facility] Results No Data Provided for This Section Pathology Reports No Data Provided for This Section Diagnostic Reports Report Value Date Source Spine lumbar wo contrast MRI MRI LUMBAR SPINE WITHOUT CONTRAST COMPARISON: 01/05/2015 radiograph exam. TECHNIQUE: Sagittal T1, sagittal T2 with fat saturation, axial T1 and axial T2 images were obtained. No intravenous gadolinium was given. FINDINGS: The paravertebral soft tissues are normal. The conus medullaris terminates at the L1 level. Multilevel thoracolumbar spine endplate Schmorl's nodes are identified, without marrow edema. T12-L1: Unremarkable. L1-L2: Unremarkable. L2-L3: No central canal stenosis. There is mild bilateral foraminal and extraforaminal disc bulge with mild bilateral foraminal stenosis. No exiting nerve root impingement is present. L3-L4: No central canal stenosis. Mild bilateral foraminal stenosis due to disc bulge encroachment is present. No significant mass effect on the exiting nerve roots. L4-L5: Mild disc bulge is present. No central canal stenosis is present. Mild bilateral foraminal stenosis is present with disc bulge contacting the bilateral L4 exiting nerve roots. L5-S1: Minimal disc bulge is seen without thecal sac stenosis. No foraminal stenosis. IMPRESSION: 1. Several levels of mild foraminal stenosis without significant mass effect on the exiting nerve roots. No focal disc herniation or significant central canal stenosis. 05/22/2015 [facility] [place] Spine lumbar 2 or 3 views DX EXAMINATION: Lumbar spine - 2 to 3 views HISTORY: Lumbago. FINDINGS: Frontal, lateral, and coned lateral views of the lumbar spine are performed without comparison. The alignment is normal without listhesis. The intervertebral disc spaces are normal. The vertebral body heights are normal without compression fracture. The sacral ala appear intact. IMPRESSION: 1. Normal alignment and intervertebral disc spaces of the lumbar spine. 01/05/2015 [facility] [place] Consultation Notes No Data Provided for This Section Discharge Summaries No Data Provided for This Section History and Physicals No Data Provided for This Section Vital Signs Vital Sign Value Date Comments Source Weight 106.455 02/18/2019 [facility] Height 190.5 cm 02/18/2019 [facility] Heart Rate 86 02/18/2019 [facility] Respitory Rate 16 02/18/2019 [facility] Temperature Oral (F) 97.9 F 02/18/2019 [facility] Systolic (mm Hg) 151 02/18/2019 [facility] Diastolic (mm Hg) 94 02/18/2019 [facility] BMI Calculated 29.33 02/18/2019 [facility] Diastolic (mm Hg) 88 12/17/2018 [facility] Height 75 12/17/2018 [facility] Systolic (mm Hg) 140 12/17/2018 [facility] Weight 222.6 12/17/2018 [facility] Systolic (mm Hg) 110 11/04/2017 [facility] Diastolic (mm Hg) 73 11/04/2017 [facility] Heart Rate 96 11/04/2017 [facility] Temperature Oral (F) 98 F 11/04/2017 [facility] BMI Calculated 26.43 11/04/2017 [facility] Weight 95.909 11/04/2017 [facility] Height 190.5 cm 11/04/2017 [facility] Encounters Location Location Details Encounter Type Encounter Number Reason For Visit Attending Provider ADM Date DC Date Status Source [facility] [place] [facility] [id number] Eliu Warduilar 01/05/2015 [facility]06[facility] [place] [facility] [id number] Eliu Warduilar 05/22/2015 05/23/2015 [facility] [place] Outpatient [id number] BRIANNE HOANG 09/23/2016 [facility] Outpatient [id number] CAROL COLBY 10/30/2016 [facility] Outpatient [id number] CAROL COLBY 11/04/2017 [facility] [place] [facility] Outpatient [id number] 11/04/2017 11/05/2017 [facility] [place] - [facility] - [facility] Eliu Larry MD: [id number], [address], [place] [address], Ph. [id number] Eliu Larry 12/17/2018 [facility] Outpatient [id number] Carol Colby 02/18/2019 [facility] [place] [facility] Outpatient [id number] 02/18/2019 02/19/2019 Medical [facility] Procedures Procedure Code Date Perfomer Comments Source Knee joint operation 840072038 [facility] Nose operation [id number] [facility] Shoulder joint operations [id number] [facility] Tonsillectomy [id number] [facility] Assessment and Plan No Data Provided for This Section Plan of Care No Data Provided for This Section Social History Social History Date Source Smoking Status Never Smoker 12/17/2018 [facility] Social History TypeResponse Substance Abuse Use: None. Exercise Exercise frequency: Daily. 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 Alcohol Current Smoking Status Never smoker; Exposure to Tobacco Smoke None; Cigarette Smoking Last 365 Days No; Reg Smoking Cessation Counseling No entered on: 02/18/19 11/04/2017 [facility] No data available for this section 05/23/2015 [facility] [place] No data available for this section 01/06/2015 [facility] [place] Family History No Data Provided for This Section Advance Directives No Data Provided for This Section Functional Status No Data Provided for This Section
--- OUTSIDE RECORDS SUMMARY | 2019-05-31 06:11 | XMS REPORT | Summary of Care ---
Author Author [facility] Address Unknown Phone Unavailable Encounter HQ Encntr_alias(FIN) [id number] Date(s): 05/22/15 - 05/22/15 [facility] [address] [place] [address]- [phone] Discharge Disposition: Home Attending Physician: Eliu Larry MD Vital Signs No data [...]
[2019-05-31 12:25] VITALS: BP 115/77
--- NOTE | 2019-05-31 21:35 | NUR ---
OPERATIVE NOTE ORTHOPEDICS DATE OF SURGERY: 05/31/19 PREOPERATIVE DIAGNOSES: Right Knee Lateral Tibial Plateau Subchondral Bone Marrow Lesion & Medial Meniscus Root Tear POSTOPERATIVE DIAGNOSES: Right Knee Lateral Tibial Plateau Subchondral Bone Marrow Lesion & Medial Meniscus Root Tear PROCEDURE: 1. Right Knee Arthroscopic Lateral Plateau Subchondroplasty 2. Medial Meniscus Root Repair 3. Flouroscopic interpretation SURGEON: Noemi Hernandez DO ANESTHESIA: General COMPLICATIONS: None TOURNIQUET: Applied but not inflated. EBL: Minimal INDICATIONS: Due to persistent pain and limitations on activity combined with findings on exam and imaging, the patient requests surgical treatment. Nonopera tive care and alternative surgical options were reviewed. We agreed that this provided the best risk/benefit profile for this patient, understanding and accepting risks of recurrent/persistent symptoms, infection, bleeding, stiffness, neurological/vascular damage, failure to improve and anesthetic complication (as reviewed by anesthesia service). Also, the patient understands that arthroscopic treatment of articular cartilage lesions provides temporary incomplete relief but that meniscal symptoms should be well addressed. FINDINGS: Right Knee Patella Normal Trochlea - Normal Lateral Gutter Normal Medial Gutter Normal Medial Compartment Femoral - Grade 1 Tibial - Grade Medial Meniscus - Posterior Horn horizontal cleavage tear with extension to an attenuated meniscal root Cruciate region Normal Lateral Compartment Femoral - Normal Tibial - Normal with softening of the undersurface of the chonrdal region near the bone marrow lesion Lateral Meniscus - Normal Synovium - Normal PROCEDURE:With the patient in the supine position with all prominences well padded, general anesthesia was obtained. Sterile prepping and draping were performed. Antibiotics had been given and a time out performed. After an injecti on of 1% Lidocaine with Epinephrine in the proposed incision sites. Under flouroscopic interpretation and the use of the patients MRI, a subchondroplasty cannula was placed into the lateral plateau with the fenestrations within the bone marrow lesion. 2.5 cc of subchondroplasty bone mimetic was introduced into the lesion without difficulty. A blush was confirmed on flouroscopy demonstrating a good fill into the lesion. While the bone mimetic was curing, an arthroscope was inserted via a small lateral parapatellar tendon incision into the patellofemoral space. Under direct visualization, a medial parapatellar tendon portal was created providing a working portal. Diagnostic arthroscopy was performed and the above findings were noted. Within the medial compartment, the medial meniscus was debrided to establish a well-balanced rim with removal of the attenuated undersurface tear. The superior edge of the meniscus was maintained. The meniscal root was debrided. With the of 0 novostitch using the [employer] meniscal system, two 0 novostitch mendes tures were placed along the lateral edge of the medial horn. In a locking loop stitch, these sutures were passed through a 4.5 mm hole that was created through the use of a pointed guide. A watson and nephew endobutton was placed at the anteromedial tibia and the suture limbs were tied over this. Arthroscopic determination demonstrated a well tensioned medial meniscus. The meniscus appeared to have a superior tilt, so two fast fixes were used to assist with keeping the meniscus abutted against the tibial plateau. Within the intercondylar space, the ACL was visualized and intact The lateral compartment demonstrated a normal lateral meniscus with no chondromalacia. There was no extravasation of the bone mimetic into the joint. The joint was extravasated and the incisions were closed with vicryl and monocryl.Steristrips, Xeroform, 4x4s, ABDs and a compressive MIKE bandage were applied. The leg was placed in a brace. The patient was awakened and transferred to the PACU in satisfactory condition having tolerated the procedure well.
== END | disposition home or self-care (01) ==
LOC: OR 06:07
PROVIDERS: ATTEND Orthopaedic Surgery
DX: S83.241A Other tear of medial meniscus, current injury, right knee, initial encounter (principal); M89.9 Disorder of bone, unspecified; R03.0 Elevated blood-pressure reading, without diagnosis of hypertension; K51.90 Ulcerative colitis, unspecified, without complications
CPT/HCPCS: 29882; 93005; J0131; J0690; J1100; J1170 ×2; J1885; J2001 ×2; J2250; J2405; J2704; J2795; J3490; C1713

== ENCOUNTER 2019-06-01 01:06 | Emergency (ER) | payer BC ==
[~2019-06-01] VITALS: Ht 190.5 cm; Wt 104.3 kg
[~2019-06-01 01:06] MED LIST changes: -ACETAMINOPHEN 1000 MG/100 ML IV ONE; -BUPIVACAINE HCL 0.5% INJ 30 ML VIAL INJ ONE; -CEFAZOLIN SOD 1 GM/NS 50ML 100 ML IV ONE; -DEXAMETHASONE SOD PHOS INJ 4 MG/ML VIAL ONE; -FENTANYL1 EAC1 TOP; -GLYCOPYRROLATE INJ 1MG/ 5 ML SYR ONE; -HYDROCODONE/APAP 5MG-325MG TAB ONE; -HYDROMORPHONE 1MG/1ML INJ ONE; -HYDROMORPHONE 2MG/ML 2 MG/ML ML ONE; -KETOROLAC TROMETHAMINE 30 MG/ML VIAL ONE; -LIDOCAINE 2%/ EPINEPHRINE 20ML MDV ONE; -LIDOCAINE HCL 2% LOCAL INJ 5 ML SDV VIAL INJ ONE; -MIDAZOLAM HCL 2 MG/2 ML VIAL ONE; -ONDANSETRON HCL INJ 2MG/ML 2ML 2 MG/ML VIAL ONE; -PROPOFOL IV EMULSION 10 MG/ML 20 ML VIAL ONE; -ROPIVACAINE 0.5% 5 MG/ML 30 ML SDV ONE; -SEVOFLURANE INHAL SOLN 250 ML PEN BTL ONE
--- OUTSIDE RECORDS SUMMARY | 2019-06-01 01:09 | XMS REPORT | Clinical Summary ---
Author Author [facility] Organization [facility] Address Unknown Phone Unavailable Care Team Providers Care Facility Attendant Name Role Phone Eliu Larry MD PCP [...] Bhatt, Sandeep, MD Colitis (Primary Dx) 10/04/2018 [facility] Internal Medicine - Encounter 10/07/2018 Eliu Larry MD 09/24/2018 Refill Family Medicine Lia Tate MA 09/22/2018 Telephone [facility] Eliu Smith MD Elevated transaminase level (Primary [...] Visit Family Lia Hebert MA 09/07/2018 Telephone [facility] Eliu Smith MD 08/10/2018 Refill Family Eliu Smith MD Acute bronchitis, unspecified organism (Primary Dx); Pharyngitis, unspecified etiology; Other fatigue; Panic attack as reaction to stress; Insomnia, unspecified type; Other specified anxiety disorders; Left ear pain 08/04/2018 Office Visit Family Eliu Smith MD 07/16/2018 Refill Family Eliu Smith MD 06/22/2018 Refill [facility] Elui Smith MD 06/18/2018 Telephone [facility] Eliu Smith MD 06/07/2018 Refill Family Medicine Eliu Larry MD 06/03/2018 Telephone Family Medicine Eliu Larry MD Acute frontal sinusitis, recurrence not specified (Primary Dx); Acute secretory otitis media of both ears; Pharyngitis, unspecified etiology; Anxiety; Psychophysiological insomnia; Panic attacks; Other fatigue 06/02/2018 Office Visit Family Medicine Eliu Larry MD 06/01/2018 Refill Family Medicine after 05/31/2018 Family History Medical History Relation Name Comments Diabetes Brother Hypertension Brother Diabetes Father Rob Sherman Hearing loss Father Rob Sherman Heart disease Father Rob Sherman Stroke Father Rob 2002 [place] Cancer Mother 4th Stage October 2014 Breast [...] Taken Vital Sign Reading 10/23/2018 9:40 AM ASSOCIATE ATTORNEY Blood Pressure 136/88 10/23/2018 9:40 AM ASSOCIATE ATTORNEY Pulse 98 10/23/2018 9:40 AM ASSOCIATE ATTORNEY Temperature 36.7 C (98.1 F) 10/07/2018 10:49 AM ASSOCIATE ATTORNEY Respiratory Rate 15 10/23/2018 9:40 AM ASSOCIATE ATTORNEY Oxygen Saturation 100% - Inhaled Oxygen - Concentration 10/23/2018 9:40 AM ASSOCIATE ATTORNEY Weight 99.8 kg (220 lb) 10/23/2018 9:40 AM ASSOCIATE ATTORNEY Height 190.5 cm (6' 3") 10/23/2018 9:40 AM ASSOCIATE ATTORNEY Body Mass Index 27.5 Plan of Treatment Health Maintenance Due Date Last Done Comments COLONOSCOPY SCREENING 2017 SHINGLES VACCINES (#1) 2017 INFLUENZA VACCINE 05/27/2019 Procedures Comments Procedure Name Priority Date/Time Associated Diagnosis HC COMPLETE BLD COUNT Routine 10/07/2018 W/AUTO DIFF 5:19 AM ASSOCIATE ATTORNEY ESTIMATED GFR Routine 10/06/2018 5:36 AM ASSOCIATE ATTORNEY BASIC METABOLIC PANEL Routine 10/06/2018 5:36 AM ASSOCIATE ATTORNEY HC COMPLETE BLD COUNT Routine 10/06/2018 W/AUTO DIFF 5:36 AM ASSOCIATE ATTORNEY GASTROINTESTINAL PANEL Routine 10/05/2018 11:52 AM ASSOCIATE ATTORNEY ESTIMATED GFR Routine 10/05/2018 5:02 AM ASSOCIATE ATTORNEY COMPREHENSIVE METABOLIC Routine 10/05/2018 PANEL 5:02 AM ASSOCIATE ATTORNEY HC COMPLETE BLD COUNT Routine 10/05/2018 W/AUTO DIFF 5:[address] ABDOMEN PELVIS W STAT 10/04/2018 CONTRAST 11:59 PM ASSOCIATE ATTORNEY ECG 12-LEAD Routine 10/04/2018 10:16 PM ASSOCIATE ATTORNEY ECG ED PRELIMINARY Routine 10/04/2018 INTERPRETATION 10:14 PM ASSOCIATE ATTORNEY ESTIMATED GFR STAT 10/04/2018 9:46 PM ASSOCIATE ATTORNEY URINALYSIS SCREEN AND STAT 10/04/2018 MICROSCOPY, WITH REFLEX 9:46 PM ASSOCIATE ATTORNEY TO CULTURE LIPASE LEVEL STAT 10/04/2018 9:46 PM ASSOCIATE ATTORNEY AMYLASE LEVEL STAT 10/04/2018 9:46 PM ASSOCIATE ATTORNEY COMPREHENSIVE METABOLIC STAT 10/04/2018 PANEL 9:46 PM ASSOCIATE ATTORNEY HC COMPLETE BLD COUNT STAT 10/04/2018 W/AUTO DIFF 9:46 PM ASSOCIATE ATTORNEY URINALYSIS, COMPLETE, Routine 09/15/2018 Erectile dysfunction, WITH REFLEX TO CULTURE 11:12 AM ASSOCIATE ATTORNEY unspecified erectile dysfunction type TESTOSTERONE LEVEL, FREE Routine 09/15/2018 Erectile dysfunction, AND TOTAL, MALE 11:12 AM ASSOCIATE ATTORNEY unspecified erectile dysfunction type TSH REFLEX TO T4F Routine 09/15/2018 Erectile dysfunction, 11:12 AM ASSOCIATE ATTORNEY unspecified erectile dysfunction type PROSTATE SPECIFIC ANTIGEN Routine 09/15/2018 Erectile dysfunction, 11:12 AM ASSOCIATE ATTORNEY unspecified erectile dysfunction type LIPID PANEL Routine 09/15/2018 Mixed hyperlipidemia 11:12 AM ASSOCIATE ATTORNEY COMPREHENSIVE METABOLIC Routine 09/15/2018 Mixed hyperlipidemia PANEL 11:12 AM ASSOCIATE ATTORNEY CBC WITH PLATELET AND Routine 09/15/2018 Routine check-up DIFFERENTIAL 11:12 AM ASSOCIATE ATTORNEY CREATINE KINASE, TOTAL Routine 09/15/2018 Mixed hyperlipidemia (CPK) 11:12 AM ASSOCIATE ATTORNEY after 05/31/2018 Results * CBC with platelet and differential (10/07/2018 5:19 AM ASSOCIATE ATTORNEY) Only the most recent of 5 results [...] [facility] Specimen Blood Performing Organization Address [facility] Hospital[facility] Phone Number [address] [place] [address] PATHOLOGY AND GENOMIC MEDICINE [address] * Estimated GFR (10/06/2018 5:36 AM ASSOCIATE ATTORNEY) Only the most recent of 3 results within the time period is included. [facility] Estimated GFR 69 mL/min/1.73 m2 [place] Comment: [facility] rpretation G1 >=90 Normal or high G2 60-89Mildly decreased [id number] Mildly to moderately decreased [id number] Moderately to severely decreased G4 15-29Severely decreased G5 <15Kidney failure The eGFR was calculated using the Chronic Kidney Disease Epidemiology Collaboration (CKD-EPI) equation. Interpretation is based on recommendations of the National Kidney Foundation-Kidney Disease Outcomes Quality Initiative (NKF-KDOQI) published in 2014. Specimen Plasma specimen Performing Organization Address [facility] Hospitalconj Phone Number [address] [place] [address] PATHOLOGY AND [facility] MEDICINE [address] * Basic metabolic panel (10/06/2018 5:36 AM ASSOCIATE ATTORNEY) [facility] Sodium 142 135 - 148 mEq/L [place] [...] [place] Specimen Plasma specimen Performing Organization Address [facility]/Zipcode Phone Number [facility] DEPARTMENT [address] [place] [address] PATHOLOGY AND GENOMIC MEDICINE [facility] [address] [place] [id number] [facility] * Gastrointestinal panel (10/05/2018 11:52 AM ASSOCIATE ATTORNEY) Gastrointestina Negative for all pathogens [facility] panel tested: YARSANI Negative for Salmonella HOSPITAL Negative for Campylobacter [...] Specimen Stool - Nonpreserved Performing Organization Address City/[facility]/Zipcode Phone Number [facility] DEPARTMENT OF [address] [place] [address] [address] * Comprehensive metabolic panel (10/05/2018 5:02 AM ASSOCIATE ATTORNEY) Only the most recent of 3 results [...] [place] Protein 6.4 6.3 - 8.3 g/dL [place] Comment: [facility] 4.6-7.0 g/dL 1 week 4.4-7.6 g/dL 7 months-1year 5.1-7.3 g/dL 1-2 years5.6-7 .5 g/dL >3 years6.0-8 .0 g/dL 18-150 6.3-8.3 g/dL Albumin 4.0 3.5 - 5.0 g/dL [facility] A/G ratio 1.7 0.7 - 3.8 [facility] Alkaline 89 40 - 129 U/L [place] phosphatase [facility] AST 22 10 - 50 U/L [facility] ALT 25 5 - 50 U/L [facility] Total bilirubin 0.4 0.0 - 1.2 mg/dL [facility] Specimen Plasma specimen Performing Organization Address City/State/[facility] Phone Number [facility] [id number] [place] [address] [place] [address] PATHOLOGY AND GENOMIC MEDICINE [facility] [id number] [place] [address] [place] [address] [facility] * CT Abdomen Pelvis W Contrast (10/04/2018 11:59 PM ASSOCIATE ATTORNEY) Specimen Narrative Performed At EXAMINATION:CT ABDOMEN PELVIS [...] compatible with mild infectious or inflammatory colitis. [facility]-[id number] Procedure Note Hm Interface, Radiology Results Incoming - 10/05/2018 12:13 AM ASSOCIATE ATTORNEY EXAMINATION: CT ABDOMEN PELVIS W CONTRAST CLINICAL [...] compatible with mild infectious or inflammatory colitis. [facility]-[id number] Performing Organization Address City/State/Zipcode Phone Number [facility] [address] [place] [address] * ECG 12 lead (10/04/2018 10:16 PM ASSOCIATE ATTORNEY) Ventricular 105 [facility] rate Atrial rate 105 [facility] DE interval 122 [facility] QRSD interval 82 [facility] QT interval 326 [facility] QTC interval 430 [facility] P axis 1 52 [facility] QRS axis 1 49 [facility] T wave axis 19 [facility] EKG impression Sinus tachycardia-Otherwise [facility] MUSE normal ECG-In automated comparison with ECG of 15-SEP-2017 09:16,-No significant change was found- Specimen Narrative Performed At Performing Organization Address City/State/Zipcode Phone Number [facility] MUSE [address] [place] [address] * ECG ED Preliminary Interpretation - Not an Order (10/04/2018 10:14 PM ASSOCIATE ATTORNEY) Narrative Performed At Felipa Krishnamurthy MD 10/05/2018 12:56 AM ECG ED Preliminary Interpretation - Not an Order Performed by: Felipa Krishnamurthy MD Authorized by: Felipa Krishnamurthy MD ECG reviewed by ED Physician in the absence of a cathode ray tube assembler: yes Interpretation: Interpretation: normal Rate: ECG rate:105 ECG rate assessment: tachycardic Rhythm: Rhythm: sinus tachycardia Ectopy: Ectopy: none QRS: QRS axis:Normal Conduction: Conduction: normal ST segments: ST segments:Non-specific T waves: T waves: normal * Urinalysis screen and microscopy, with reflex to culture (10/04/2018 9:46 PM ASSOCIATE ATTORNEY) Specimen site Clean catch [facility] Color, UA Yellow [facility] Appearance, UA Clear [facility] Specific 1.017 1.001 - 1.035 [place] gravity, [facility] pH, UA 6.0 5.0 - 8.5 [facility] Protein, UA Negative Negative [facility] Glucose, UA Negative Negative [facility] Ketones, UA Negative Negative [facility] Bilirubin, UA Negative Negative [facility] Blood, UA Negative Negative [facility] Nitrite, UA Negative Negative [facility] Urobilinogen, Negative <2.0 [facility] Leukocyte Negative Negative [place] esterase, UA [facility] Round Few 0 - 1 /HPF [place] epithelial [address] ST[address] cells, [facility] WBC, UA 0-5 0 - 1 /HPF [facility] RBC, UA 0-5 0 - 5 /HPF [facility] Bacteria, UA Trace None seen [facility] Yeast, UA None seen [facility] Yeast with None seen [place] pseudohyphae, YARSANI [facility] Hyaline casts, 3-5 /LPF [facility] Specimen Urine Performing Organization Address [facility]conj Phone Number [address] [place] [address] PATHOLOGY AND GENOMIC MEDICINE [address] * Lipase level (10/04/2018 9:46 PM ASSOCIATE ATTORNEY) Lipase 24 13 - 60 U/L [facility] Specimen Plasma specimen Performing Organization Address [facility] Phone Number [address] [place] [address] PATHOLOGY AND [facility] MEDICINE [address] * Amylase level (10/04/2018 9:46 PM ASSOCIATE ATTORNEY) Amylase 80 (H) 13 - 73 U/L [facility] Specimen Plasma specimen Performing Organization Address [facility] Phone Number [address] [place] [address] PATHOLOGY AND GENOMIC MEDICINE [address] * URINALYSIS, COMPLETE, WITH REFLEX TO CULTURE (09/15/2018 11:12 AM ASSOCIATE ATTORNEY) Color, UA DARK YELLOW YELLOW [facility] [place] Appearance CLEAR CLEAR [facility] [place] Specific 1.021 1.001 - 1.035 [facility] gravity, urine DIAGNOSTICS [place] pH, urine 7.5 5.0 - 8.0 [facility] [place] Glucose, urine NEGATIVE NEGATIVE [facility] [place] Bilirubin, UA NEGATIVE NEGATIVE [facility] [place] Ketones, UA NEGATIVE NEGATIVE [facility] [place] Occult blood, NEGATIVE NEGATIVE [facility] urine [facility]AGNOSTICS [place] Protein, UA NEGATIVE NEGATIVE [facility] [place] Nitrite, UA NEGATIVE NEGATIVE [facility] [place] Leukocyte NEGATIVE NEGATIVE [facility] esterase, UA [facility] [place] WBC, UA NONE SEEN < OR=5 /HPF [facility] [place] RBC, UA NONE SEEN < OR=2 /HPF [facility] [place] Squamous NONE SEEN < OR=5 /HPF [facility] epithelial DIAGNOSTICS cells, UA [place] Bacteria, UA NONE SEEN NONE SEEN /HPF [facility] [place] Hyaline casts, NONE SEEN NONE SEEN /LPF [facility] UA [facility] [place] Reflex NO CULTURE INDICATED [facility] [place] Specimen Narrative Performed At FASTING:YES [facility] FASTING: YES Resulting Agency Comment Performing Organization Information: Site ID: Art Name: [facility] Address: [address] [place] [phone] Director: Natalie Ball Performing Organization Address [facility]code Phone Number [facility] [place] [address] [place] [id number] * TSH reflex to T4 (09/15/2018 11:12 AM ASSOCIATE ATTORNEY) TSH reflex to 0.71 0.40 - 4.50 mIU/L [facility] FT4 [facility] [place] Specimen Blood Narrative Performed At FASTING:YES [facility] FASTING: YES Resulting Agency Comment Performing Organization Information: Site ID: [id number] Name: [facility] Address: [address] [place] [phone] Director: Natalie Ball Performing Organization Address [facility]conj Phone Number [facility] [place] [address] * Testosterone level, free and total, male (09/15/2018 11:12 AM ASSOCIATE ATTORNEY) Testosterone, 449 250 - 1,100 ng/dL [facility] total, lc/ms/ms [facility] Testosterone, 73.5 35.0 - 155.0 pg/mL [facility] free Comment: DIAGNOSTICS Data from J Clin Invest FLORES 1974:53:819-828 and J Clin NORRIS Endocrinol Metab 1973;36:7116-5436. Men with clinically significant hypogonadal symptoms and testosterone values repeatedly in the range of the 200-300 ng/dL or less, may benefit from testosterone treatment after adequate risk and benefits counseling. For additional information, please refer to http://education.Corventis.proteonomix/faq/ILI893 (This link is being provided for informational/ educational purposes only.) This test was developed and its analytical performance characteristics have been determined by [employer] [facility] [place]. It has not been cleared or approved by the US Food and Drug Administration. This assay has been validated pursuant to the CLIA regulations and is used for clinical purposes. Specimen Narrative Performed At FASTING:YES [facility] FASTING: YES Resulting Agency Comment Performing Organization Information: Site ID: [id number] Name: [facility] Address: [address] [place] [address] Director: Tyrell Patton M.D., Ph.D Performing Organization Address [facility] Phone Number [facility] FLORES [address] [place] [address] [place] * Prostate specific antigen (09/15/2018 11:12 AM ASSOCIATE ATTORNEY) PSA 0.5 < OR=4.0 ng/mL [facility] Comment: DIAGNOSTICS The total PSA value from this [place] assay system is standardized against the WHO standard. The test result will be approximately 20% lower when compared to the equimolar-standardized total PSA (Wyatt Viola). Comparison of serial PSA results should be [...] Performing Organization Information: Site ID: [id number] Name: [facility] Address: [address] [place] [phone] Director: Natalie Ball Performing Organization Address [facility] Phone [place] [address] * Creatine kinase, total (CPK) (09/15/2018 11:12 AM ASSOCIATE ATTORNEY) Pathologist [facility] Creatine kinase 114 44 - 196 U/L [facility] Specimen Narrative Performed At FASTING:YES [facility] FASTING: YES Resulting Agency Comment Performing Organization Information: Site ID: [id number] Name: [facility] Address: [address] [place] [phone] Director: Natalie Ball Performing Organization Address [facility] Hospitalcode [place] [address] * Lipid panel (09/15/2018 11:12 AM ASSOCIATE ATTORNEY) Cholesterol, 201 (H) <200 mg/dL [facility] total [facility] HDL cholesterol 56 >40 mg/dL [facility] Triglycerides 129 <150 mg/dL [facility] LDL cholesterol 121 (H) mg/dL (calc) [facility] calculated Comment: DIAGNOSTICS Reference range: <100 [place] Desirable range <100 mg/dL for primary prevention; <70 mg/dL for patients with CHD or diabetic patients with > or=2 CHD risk factors. LDL-C is now calculated using the Karen calculation, which is a validated novel method providing better accuracy than the Friedewald equation in the estimation of LDL-C. Franklyn LIRA et al. KARLY. 2013;310(19): 8792-1103 (http://education.Swoop.proteonomix/faq/YKG232) Cholesterol/HDL 3.6 <5.0 (calc) [facility] ratio DIAGNOSTICS [place] Non-HDL 145 (H) <130 mg/dL (calc) [facility] cholesterol Comment: DIAGNOSTICS For patients with diabetes [place] plus 1 major ASCVD risk factor, treating to a non-HDL-C goal of <100 mg/dL (LDL-C of <70 mg/dL) is considered a therapeutic option. Specimen Narrative Performed At FASTING:YES [facility] FASTING: YES Resulting Agency Comment Performing Organization Information: Site ID: [id number] Name: [facility] Address: [address] [place] [phone] Director: Natalie Ball Performing Organization Address City/State/Zipcode Phone Number [employer] [place] [address] [place], [place] [phone] after 05/31/2018 Insurance Type Payer Benefit Subscriber ID Effective Phone Address Plan / Dates Group HMO AETNA AETNA xxxxxxxxxx 2005-P HMO,POS,EP resent O, MC/EC Advance Directives Patient has advance care planning documents, and code status on file. For more i nformation, please contact: Shiraz Freire [address] [place] [address] Date Inactivated Comments Code Status Date Activated 10/07/2018 4:59 PM Full Code 10/05/2018 2:01 AM Code Status decision reached by: Patient
--- OUTSIDE RECORDS SUMMARY | 2019-06-01 01:10 | XMS REPORT | Continuity of Care Document ---
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 Role Phone [employer] Unavailable Unavailable Problems Problem Status Onset Date Classification Date Reported Comments Source Ulcerative colitis 12/17/2018 Diagnosis 12/17/2018 [facility] Body mass index 25-29 - overweight 12/17/2018 Diagnosis 12/17/2018 [facility] Depression screening 12/17/2018 Diagnosis 12/17/2018 [facility] Acute meniscal tear, lateral 12/17/2018 Diagnosis 12/17/2018 [facility] Generalized anxiety disorder 12/17/2018 Diagnosis 12/17/2018 [facility] Chronic insomnia 12/17/2018 Diagnosis 12/17/2018 [facility] Generalized Anxiety Disorder 12/17/2018 Problem 12/17/2018 [facility] Ulcerative Colitis 12/17/2018 Problem 12/17/2018 [facility] Chronic Insomnia 12/17/2018 Problem 12/17/2018 [facility] 097 - OTH UNSPEC SY Active 04/27/2015 [facility] 724.2 - LUMBAGO Active 01/05/2015 [facility] Cough Active Problem 02/21/2019 [facility] Sore throat Active Problem 02/21/2019 [facility] Elevated blood pressure reading Active Problem 02/21/2019 [facility] PND (Confirmed) Active Problem 02/21/2019 [facility] Sinusitis Active Problem 02/21/2019 [facility] Medications Medication Details Route Status Patient Instructions Ordering Provider Order Date Source benzonatate 200 MG Oral Capsule [Tessalon] 200 mg=1 cap, PO, TID, X 10 day, # 30 cap, 0 Refill(s), Pharmacy: [facility]/pharmacy #[id number] Active 02/18/2019 [facility] Azithromycin 5 Day Dose Pack 250 mg oral tablet See Instructions, Take 2 tablets by mouth the first day then 1 tablet by mouth days 2-5., X 5 day, # 6 tab, 0 Refill(s), Pharmacy: [facility]/pharmacy #[id number] Active 02/18/2019 [facility] Azelastine hydrochloride 0.137 MG/ACTUAT Metered Dose Nasal [place] [Astelin] 2 spray, NASAL, BID, # 1 ea, 0 Refill(s), Pharmacy: [facility]/pharmacy #[id number] Active 11/04/2017 [facility] Codeine Phosphate 2 MG/ML / Guaifenesin 20 MG/ML Oral Solution 10 mL, PO, Bedtime, PRN for cough, X 7 day, # 100 mL, 0 Refill(s) No Longer Active 11/04/2017 [facility] Oseltamivir 75 MG Oral Capsule [Tamiflu] 75 mg, PO, Q12H, X 5 day, # 10 cap, 0 Refill(s) No Longer Active 11/04/2017 [facility] Azelastine hydrochloride 0.137 MG/ACTUAT Metered Dose Nasal [place] azelastine 137 mcg (0.1 %) nasal spray aerosol [place] 1 spray every day by nasal route as needed for 30 days. Active [facility] Escitalopram 10 MG Oral Tablet escitalopram 10 mg tablet take 1 tablet po daily Active [facility] Acetaminophen 325 MG / Hydrocodone Bitartrate 5 MG Oral Tablet hydrocodone 5 mg-acetaminophen 325 mg tablet Take 1 tablet every 6 hours by oral route. Active [facility] Prednisone 10 MG Oral Tablet prednisone 10 mg tablet Take 1 tablet every day by oral route. Active [facility] Zolpidem tartrate 10 MG Oral Tablet zolpidem 10 mg tablet Take 1 tablet every day by oral route. [facility] Allergies, Adverse Reactions, Alerts Substance Category Reaction Severity Reaction type Status Date Reported Comments Source No Known Medication Allergies Assertion Drug allergy [facility] Immunizations Immunization Date Given Site Status Last Updated Comments Source influenza virus vaccine, inactivated 08/03/2018 completed [facility] influenza virus vaccine, inactivated 07/27/2017 completed [facility] Results No Data Provided for This Section [...] or significant central canal stenosis. 05/22/2015 [facility] [place] Spine lumbar 2 or 3 views DX [...] spaces of the lumbar spine. 01/05/2015 [facility] Consultation Notes No Data Provided for This Section Discharge Summaries No Data Provided for This Section History and Physicals No Data Provided for This Section Vital Signs Vital Sign Value Date Comments Source Weight 106.455 02/18/2019 [facility] Height 190.5 cm 02/18/2019 [facility] Heart Rate 86 02/18/2019 [facility] Respitory Rate 16 02/18/2019 [facility] Temperature Oral (F) 97.9 F 02/18/2019 [facility] Systolic (mm Hg) 151 02/18/2019 [facility] Diastolic (mm Hg) 94 02/18/2019 [facility] BMI Calculated 29.33 02/18/2019 [facility] Diastolic (mm Hg) 88 12/17/2018 [facility] Height 75 12/17/2018 [facility] Systolic (mm Hg) 140 12/17/2018 [facility] Weight 222.6 12/17/2018 [facility] Systolic (mm Hg) 110 11/04/2017 Medical [...] Provider ADM Date DC Date Status Source [facility] [id number] Eliu Warduilar 01/05/2015 01/06/2015 [facility] [place] [facility] [id number] Eliu Warduilar 05/22/2015 05/23/2015 [facility] [place] Outpatient [id number] BRIANNE HOANG 09/23/2016 [facility] Outpatient [id number] CAROL COLBY 10/30/2016 [facility] Outpatient [id number] CAROL COLBY 11/04/2017 [facility] [place] [address] Outpatient [id number] 11/04/2017 11/05/2017 [facility] [place] - [facility] - [facility] Eliu Larry MD: [address], [address], [place] [address], Ph. [id number] Eliu Larry 12/17/2018 [facility] Outpatient [id number] Carol Colby 02/18/2019 [facility] [place] [address] Outpatient [id number] 02/18/2019 02/19/2019 [facility] Procedures Procedure Code Date Perfomer Comments Source Knee joint operation [id number] [facility] Nose operation [id number] [facility] Shoulder joint operations [id number] [facility] Tonsillectomy [id number] [facility] Assessment and Plan No Data Provided for This Section Plan of Care No Data Provided for This Section Social History Social History Date Source Smoking Status Never Smoker 12/17/2018 [facility] Social History TypeResponse Substance Abuse Use: None. Exercise Exercise frequency: Daily. 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 Alcohol Current Smoking Status Never smoker; Exposure to Tobacco Smoke None; Cigarette Smoking Last 365 Days No; Reg Smoking Cessation Counseling No entered on: 02/18/19 11/04/2017 [facility] No data available for this section 05/23/2015 [facility] [place] No data available for this section 01/06/2015 [facility] Family History No Data Provided for This Section Advance Directives No Data Provided for This Section Functional Status No Data Provided for This Section
[2019-06-01] MEDS ORDERED: KETOROLAC TROMETHAMINE 60 MG/2 ML VIAL ONE (01:12)
[2019-06-01] MEDS ORDERED: KETOROLAC TROMETHAMINE 60 MG/2 ML VIAL IM ONE (01:30)
[2019-06-01] MEDS ORDERED: FENTANYL 100 MCG/HR PATCH TOP SCH (01:45)
[2019-06-01] MEDS ORDERED: FENTANYL1 EAC1 TOP (01:54)
[2019-06-01] MEDS ORDERED: FENTANYL 50 MCG/HR PATCH TOP SCH (02:00)
[2019-06-01] MEDS ORDERED: FENTANYL 50 MCG/HR PATCH TOP ONE (02:15)
[2019-06-01] MEDS ORDERED: ONDANSETRON HCL INJ 2MG/ML 2ML 2 MG/ML VIAL IV STA (02:21)
[2019-06-01] MEDS ORDERED: MORPHINE SULFATE INJ 4 MG/ML INJ 1ML ONE (02:23)
[2019-06-01] MEDS ORDERED: MORPHINE SULFATE 2 MG/ML SYR 1ML ONE (02:23)
[2019-06-01] MEDS ORDERED: ONDANSETRON HCL INJ 2MG/ML 2ML 2 MG/ML VIAL ONE (02:23)
[2019-06-01] MEDS ORDERED: MORPHINE SULFATE INJ 4 MG/ML INJ 1ML IV ONE (02:30)
[2019-06-01 03:40] VITALS: BP 132/79
== END 2019-06-01 03:50 | disposition home or self-care (01) ==
LOC: ER 01:06
DX: M25.561 Pain in right knee (principal); Z98.890 Other specified postprocedural states
CPT/HCPCS: 96372; 96374; 99283; J1885; J2270 ×2; J2405

== ENCOUNTER 2019-06-03 21:24 | Emergency (ER) | payer BC ==
[~2019-06-03] VITALS: Ht 190.5 cm; Wt 104.3 kg
[~2019-06-03 21:24] MED LIST changes: +FENTANYL1 EAC1 TOP
--- OUTSIDE RECORDS SUMMARY | 2019-06-03 21:28 | XMS REPORT | Clinical Summary ---
Author Author [facility] Address Unknown Phone Unavailable Care Team Providers Care Transportation Maintenance Supervisor Name Role Phone Eliu Larry MD PCP [...] day as needed (congestion post nasal drip). 06/02/2018 Discontinued zolpidem (AMBIEN) 10 mg TAKE [...] 0.5 TAKE 1 TABLET 40 tablet 0 06/22/201 MG tablet BY MOUTH 3 8 TIMES [...] Bhatt, Sandeep, MD Colitis (Primary Dx) 10/04/2018 [facility] Internal Medicine - Encounter 10/07/2018 Eliu Larry MD 09/24/2018 Refill [facility] Medicine Lia Tate MA 09/22/2018 Telephone [facility] Medicine Eliu Larry MD Elevated transaminase level (Primary Dx) 09/20/2018 [...] Weight gain, abnormal 09/15/2018 Office Visit Family Medicine Lia Tate MA 09/07/2018 Telephone [facility] Eliu Larry MD 08/10/2018 Refill [facility] Eliu Smith MD Acute bronchitis, unspecified organism (Primary Dx); Pharyngitis, unspecified etiology; Other fatigue; Panic attack as reaction to stress; Insomnia, unspecified type; Other specified anxiety disorders; Left ear pain 08/04/2018 Office Visit Family Eliu Smith MD 07/16/2018 [place] [facility] Eliu Smith MD 06/22/2018 Refill [facility] Eliu Smith MD 06/18/2018 Telephone [facility] Eliu Smith MD 06/07/2018 Refill [facility] Eliu Smith MD 06/03/2018 Telephone [facility] Medicine Eliu Larry MD Acute frontal sinusitis, recurrence not specified (Primary Dx); Acute secretory otitis media of both ears; Pharyngitis, unspecified etiology; Anxiety; Psychophysiological insomnia; Panic attacks; Other fatigue 06/02/2018 Office Visit Family Medicine after 06/02/2018 Family History Medical History Relation Name Comments Diabetes Brother Hypertension Brother Diabetes Father Rob Sherman Hearing loss Father Rob Sherman Heart disease Father Rob Sherman Stroke Father Rob 2001 Whit Cancer Mother 4th Stage October 2014 Breast Cancer Diabetes Paternal Germán Sherman Grandfather Stroke Paternal Germán Sherman 1978 Grandfather Miscarriages / Paternal Irma late 1930's Stillbirths Grandmother Whit Vision loss Paternal Irma Legally blind Grandmother Whit Relation Name Status Comments Brother Father Rob Sherman Mother 4th Stage Breast Cancer Paternal Grandfather Germán Sherman Paternal Grandmother Irma Sherman Social History [...] Taken Vital Sign Reading 10/23/2018 9:40 AM ORNAMENTAL PLASTER STICKER Blood Pressure 136/88 10/23/2018 9:40 AM ORNAMENTAL PLASTER STICKER Pulse 98 10/23/2018 9:40 AM ORNAMENTAL PLASTER STICKER Temperature 36.7 C (98.1 F) 10/07/2018 10:49 AM ORNAMENTAL PLASTER STICKER Respiratory Rate 15 10/23/2018 9:40 AM ORNAMENTAL PLASTER STICKER Oxygen Saturation 100% - Inhaled Oxygen - Concentration 10/23/2018 9:40 AM ORNAMENTAL PLASTER STICKER Weight 99.8 kg (220 lb) 10/23/2018 9:40 AM ORNAMENTAL PLASTER STICKER Height 190.5 cm (6' 3") 10/23/2018 9:40 AM ORNAMENTAL PLASTER STICKER Body Mass Index 27.5 Plan of Treatment Health Maintenance Due Date Last Done Comments COLONOSCOPY SCREENING 2017 SHINGLES VACCINES (#1) 2017 INFLUENZA VACCINE 05/27/2019 Procedures Comments Procedure Name Priority Date/Time Associated Diagnosis HC COMPLETE BLD COUNT Routine 10/07/2018 W/AUTO DIFF 5:19 AM ORNAMENTAL PLASTER STICKER ESTIMATED GFR Routine 10/06/2018 5:36 AM ORNAMENTAL PLASTER STICKER BASIC METABOLIC PANEL Routine 10/06/2018 5:36 AM ORNAMENTAL PLASTER STICKER HC COMPLETE BLD COUNT Routine 10/06/2018 W/AUTO DIFF 5:36 AM ORNAMENTAL PLASTER STICKER GASTROINTESTINAL PANEL Routine 10/05/2018 11:52 AM ORNAMENTAL PLASTER STICKER ESTIMATED GFR Routine 10/05/2018 5:02 AM ORNAMENTAL PLASTER STICKER COMPREHENSIVE METABOLIC Routine 10/05/2018 PANEL 5:02 AM ORNAMENTAL PLASTER STICKER HC COMPLETE BLD COUNT Routine 10/05/2018 W/AUTO DIFF 5:02 AM ORNAMENTAL PLASTER STICKER CT ABDOMEN PELVIS W STAT 10/04/2018 CONTRAST 11:59 PM ORNAMENTAL PLASTER STICKER ECG 12-LEAD Routine 10/04/2018 10:16 PM ORNAMENTAL PLASTER STICKER ECG ED PRELIMINARY Routine 10/04/2018 INTERPRETATION 10:14 PM ORNAMENTAL PLASTER STICKER ESTIMATED GFR STAT 10/04/2018 9:46 PM ORNAMENTAL PLASTER STICKER URINALYSIS SCREEN AND STAT 10/04/2018 MICROSCOPY, WITH REFLEX 9:46 PM ORNAMENTAL PLASTER STICKER TO CULTURE LIPASE LEVEL STAT 10/04/2018 9:46 PM ORNAMENTAL PLASTER STICKER AMYLASE LEVEL STAT 10/04/2018 9:46 PM ORNAMENTAL PLASTER STICKER COMPREHENSIVE METABOLIC STAT 10/04/2018 PANEL 9:46 PM ORNAMENTAL PLASTER STICKER HC COMPLETE BLD COUNT STAT 10/04/2018 W/AUTO DIFF 9:46 PM ORNAMENTAL PLASTER STICKER URINALYSIS, COMPLETE, Routine 09/15/2018 Erectile dysfunction, WITH REFLEX TO CULTURE 11:12 AM ORNAMENTAL PLASTER STICKER unspecified erectile dysfunction type TESTOSTERONE LEVEL, FREE Routine 09/15/2018 Erectile dysfunction, AND TOTAL, MALE 11:12 AM ORNAMENTAL PLASTER STICKER unspecified erectile dysfunction type TSH REFLEX TO T4F Routine 09/15/2018 Erectile dysfunction, 11:12 AM ORNAMENTAL PLASTER STICKER unspecified erectile dysfunction type PROSTATE SPECIFIC ANTIGEN Routine 09/15/2018 Erectile dysfunction, 11:12 AM ORNAMENTAL PLASTER STICKER unspecified erectile dysfunction type LIPID PANEL Routine 09/15/2018 Mixed hyperlipidemia 11:12 AM ORNAMENTAL PLASTER STICKER COMPREHENSIVE METABOLIC Routine 09/15/2018 Mixed hyperlipidemia PANEL 11:12 AM ORNAMENTAL PLASTER STICKER CBC WITH PLATELET AND Routine 09/15/2018 Routine check-up DIFFERENTIAL 11:12 AM ORNAMENTAL PLASTER STICKER CREATINE KINASE, TOTAL Routine 09/15/2018 Mixed hyperlipidemia (CPK) 11:12 AM ORNAMENTAL PLASTER STICKER after 06/02/2018 Results * CBC with platelet and differential (10/07/2018 5:19 AM ORNAMENTAL PLASTER STICKER) Only the most recent of 5 results within the time period is included. WBC 5.74 4.50 - 11.00 k/uL [facility] RBC 4.34 (L) 4.40 - 6.00 m/uL [facility] HGB 13.2 (L) 14.0 - 18.0 g/dL [facility] HCT 39.8 (L) 41.0 - 51.0 % [facility] MCV 91.7 82.0 - 100.0 fL [facility] MCH 30.4 27.0 - 34.0 pg [facility] MCHC 33.2 31.0 - 37.0 g/dL [facility] RDW - SD 45.5 37.0 - 55.0 fL [facility] MPV 9.1 8.8 - 13.2 fL [facility] Platelet count 170 150 - 400 k/uL [facility] Nucleated RBC 0.00 /100 WBC [facility] Neutrophils 65.8 39.0 - 69.0 % [facility] Lymphocytes 16.9 (L) 25.0 - 45.0 % [facility] Monocytes 13.4 (H) 0.0 - 10.0 % [facility] Eosinophils 3.1 0.0 - 5.0 % [facility] Basophils 0.3 0.0 - 1.0 % [facility] Specimen Blood Performing Organization Address [facility] Phone Number [address] [place] [address] PATHOLOGY AND GENOMIC MEDICINE [address] * Estimated GFR (10/06/2018 5:36 AM ORNAMENTAL PLASTER STICKER) Only the most recent of 3 results within the time period is included. [facility] Estimated GFR 69 mL/min/1.73 m2 [facility] Comment: [facility] rpretation G1 >=90 Normal or high G2 60-89Mildly decreased [id number] Mildly to moderately decreased [id number] Moderately to severely decreased G4 15-29Severely decreased G5 <15Kidney failure The eGFR was calculated using the Chronic Kidney Disease Epidemiology Collaboration (CKD-EPI) equation. Interpretation is based on recommendations of the National Kidney Foundation-Kidney Disease Outcomes Quality Initiative (NKF-KDOQI) published in 2014. Specimen Plasma specimen Performing Organization Address [facility] Hospital[facility] Phone Number [address] [place] [address] PATHOLOGY AND GENOMIC MEDICINE [address] * Basic metabolic panel (10/06/2018 5:36 AM ORNAMENTAL PLASTER STICKER) [facility] Sodium 142 135 - 148 mEq/L [facility] Potassium 4.2 3.5 - 5.0 mEq/L [facility] Chloride 105 98 - 112 mEq/L [facility] CO2 30 24 - 31 mEq/L [facility] Anion gap 7@ANIO 7 - 15 mEq/L [facility] BUN 6 6 - 20 mg/dL [facility] Creatinine 1.20 0.70 - 1.20 mg/dL [facility] Glucose 113 (H) 65 - 99 mg/dL [facility] Calcium 8.8 8.3 - 10.2 mg/dL [facility] Specimen Plasma specimen Performing Organization Address City/[facility] Phone Number [place] [address] [place] [address] PATHOLOGY AND GENOMIC MEDICINE [facility] [address] [place] [id number] [facility] * Gastrointestinal panel (10/05/2018 11:52 AM ORNAMENTAL PLASTER STICKER) Pathologist [facility] Gastrointestina Negative for all pathogens [facility] panel tested: CAODAISM Negative for Salmonella HOSPITAL Negative for Campylobacter [...] Specimen Stool - Nonpreserved Performing Organization Address City/State/Zipcode Phone Number [facility] DEPARTMENT OF [address] [place] [address] PATHOLOGY AND GENOMIC MEDICINE [address] * Comprehensive metabolic panel (10/05/2018 5:02 AM ORNAMENTAL PLASTER STICKER) Only the most recent of 3 results within the time period is included. Pathologist [facility] Sodium 146 135 - 148 mEq/L [facility] Potassium 4.7 3.5 - 5.0 mEq/L [facility] Chloride 107 98 - 112 mEq/L [facility] CO2 29 24 - 31 mEq/L [facility] Anion gap 10@ANIO 7 - 15 mEq/L [facility] BUN 9 6 - 20 mg/dL [facility] Creatinine 1.20 0.70 - 1.20 mg/dL [facility] Glucose 116 (H) 65 - 99 mg/dL [facility] Calcium 9.0 8.3 - 10.2 mg/dL [facility] Protein 6.4 6.3 - 8.3 g/dL [facility] Comment: [facility] 4.6-7.0 g/dL 1 week 4.4-7.6 g/dL 7 months-1year 5.1-7.3 g/dL 1-2 years5.6-7 .5 g/dL >3 years6.0-8 .0 g/dL 18-150 6.3-8.3 g/dL Albumin 4.0 3.5 - 5.0 g/dL [facility] A/G ratio 1.7 0.7 - 3.8 [facility] Alkaline 89 40 - 129 U/L [facility] phosphatase [facility] AST 22 10 - 50 U/L [facility] ALT 25 5 - 50 U/L [facility] Total bilirubin 0.4 0.0 - 1.2 mg/dL [facility] Specimen Plasma specimen Performing Organization Address City/State/[facility]d Phone [place] [facility] [place] [id number] [place] [address] [place] [address] PATHOLOGY AND GENOMIC MEDICINE [facility] [id number] [place] [address] [place] [address] [facility] * CT Abdomen Pelvis W Contrast (10/04/2018 11:59 PM ORNAMENTAL PLASTER STICKER) Specimen Narrative Performed At EXAMINATION:CT ABDOMEN PELVIS [...] compatible with mild infectious or inflammatory colitis. [facility]-[id number] Procedure Note Hm Interface, Radiology Results Incoming - 10/05/2018 12:13 AM ORNAMENTAL PLASTER STICKER EXAMINATION: CT ABDOMEN PELVIS W CONTRAST CLINICAL [...] compatible with mild infectious or inflammatory colitis. [facility]-[id number] Performing Organization Address City/[facility] Phone Number [employer] [address] [place] [address] * ECG 12 lead (10/04/2018 10:16 PM ORNAMENTAL PLASTER STICKER) Ventricular 105 [facility] rate Atrial rate 105 [facility] OK interval 122 [facility] QRSD interval 82 [facility] QT interval 326 [facility] QTC interval 430 [facility] P axis 1 52 [facility] QRS axis 1 49 [facility] T wave axis 19 HM MUSE EKG impression Sinus tachycardia-Otherwise [facility] MUSE normal ECG-In automated comparison with ECG of 15-SEP-2017 09:16,-No significant change was found- Specimen Narrative Performed At Performing Organization Address [facility] Phone Number [facility] MUSE [address] [place] [address] * ECG ED Preliminary Interpretation - Not an Order (10/04/2018 10:14 PM ORNAMENTAL PLASTER STICKER) Narrative Performed At Felipa Krishnamurthy MD 10/05/2018 12:56 AM ECG ED Preliminary Interpretation - Not an Order Performed by: Felipa Krishnamurthy MD Authorized by: Felipa Krishnamurthy MD ECG reviewed by ED Physician in the absence of a debrander: yes Interpretation: Interpretation: normal Rate: ECG rate:105 ECG rate assessment: tachycardic Rhythm: Rhythm: sinus tachycardia Ectopy: Ectopy: none QRS: QRS axis:Normal Conduction: Conduction: normal ST segments: ST segments:Non-specific T waves: T waves: normal * Urinalysis screen and microscopy, with reflex to culture (10/04/2018 9:46 PM ORNAMENTAL PLASTER STICKER) Specimen site Clean catch [facility] Color, UA Yellow [facility] Appearance, UA Clear [facility] Specific 1.017 1.001 - 1.035 [facility] gravity, [facility] pH, UA 6.0 5.0 - 8.5 [facility] Protein, UA Negative Negative [facility] Glucose, UA Negative Negative [facility] Ketones, UA Negative Negative [facility] Bilirubin, UA Negative Negative [facility] Blood, UA Negative Negative [facility] Nitrite, UA Negative Negative [facility] Urobilinogen, Negative <2.0 [facility] Leukocyte Negative Negative [facility] esterase, UA [facility] Round Few 0 - 1 /HPF [facility] epithelial [facility] WBC, UA 0-5 0 - 1 /HPF [facility] RBC, UA 0-5 0 - 5 /HPF [facility] Bacteria, UA Trace None seen [facility] Yeast, UA None seen [facility] Yeast with None seen [facility] Hyaline casts, 3-5 /LPF [facility] Specimen Urine Performing Organization Address City/State/Zipcode Phone Number [facility] DEPARTMENT [address] [place] [address] PATHOLOGY AND GENOMIC MEDICINE [address] * Lipase level (10/04/2018 9:46 PM ORNAMENTAL PLASTER STICKER) Lipase 24 13 - 60 U/L [facility] Specimen Plasma specimen Performing Organization Address City/[facility] Phone Number [address] [place] [address] PATHOLOGY AND GENOMIC MEDICINE [address] * Amylase level (10/04/2018 9:46 PM ORNAMENTAL PLASTER STICKER) Amylase 80 (H) 13 - 73 U/L [facility] Specimen Plasma specimen Performing Organization Address [facility] Phone Number [address] [place] [address] PATHOLOGY AND [facility] MEDICINE [address] * URINALYSIS, COMPLETE, WITH REFLEX TO CULTURE (09/15/2018 11:12 AM ORNAMENTAL PLASTER STICKER) Color, UA DARK YELLOW YELLOW [facility] [place] Appearance CLEAR CLEAR [facility] [place] Specific 1.021 1.001 - 1.035 [facility] gravity, urine DIAGNOSTICS [facility] pH, urine 7.5 5.0 - 8.0 [facility] Glucose, urine NEGATIVE NEGATIVE [facility] [place] Bilirubin, UA NEGATIVE NEGATIVE [facility] [place] Ketones, UA NEGATIVE NEGATIVE [facility] [place] Occult blood, NEGATIVE NEGATIVE [facility] urine [facility] [place] Protein, UA NEGATIVE NEGATIVE [facility] Nitrite, UA NEGATIVE NEGATIVE [facility] Leukocyte NEGATIVE NEGATIVE [facility] esterase, UA [facility] [place] WBC, UA NONE SEEN < OR=5 /HPF [facility] [place] RBC, UA NONE SEEN < OR=2 /HPF [facility] Squamous NONE SEEN < OR=5 /HPF [facility] epithelial [facility]AGNOSTICS cells, UA [facility] Bacteria, UA NONE SEEN NONE SEEN /HPF [facility] Hyaline casts, NONE SEEN NONE SEEN /LPF [facility] UA [facility] [place] Reflex NO CULTURE INDICATED [facility] [place] Specimen Narrative Performed At FASTING:YES [facility] FASTING: YES Resulting Agency Comment Performing Organization Information: Site ID: [id number] Name: [facility] Address: [address] [place] [phone] Director: Natalie Ball Performing Organization Address [facility] Phone Number [facility] [place] [address] [place] [address] [phone] * TSH reflex to T4 (09/15/2018 11:12 AM ORNAMENTAL PLASTER STICKER) Pathologist [facility] TSH reflex to 0.71 0.40 - 4.50 mIU/L [facility] Specimen Blood Narrative Performed At FASTING:YES [facility] FASTING: YES Resulting Agency Comment Performing Organization Information: Site ID: [id number] Name: [facility] Address: [address] [place] [address] Director: Natalie Ball Performing Organization Address [facility] Phone Number [facility] [place] [address] [place] [address] * Testosterone level, free and total, male (09/15/2018 11:12 AM ORNAMENTAL PLASTER STICKER) Pathologist [facility] Testosterone, 449 250 - 1,100 ng/dL [facility] total, lc/ms/ms [facility] Testosterone, 73.5 35.0 - 155.0 pg/mL [facility] free Comment: DIAGNOSTICS Data from J Clin Invest GONZALEZ 1974:53:819-828 and J Clin MORIN Endocrinol Metab 1973;36:6042-1653. Men with clinically significant hypogonadal symptoms and testosterone values repeatedly in the range of the 200-300 ng/dL or less, may benefit from testosterone treatment after adequate risk and benefits counseling. For additional information, please refer to http://education.[employer].com/faq/QKQ620 (This link is being provided for informational/ educational purposes only.) This test was developed and its analytical performance characteristics have been determined by [facility]. It has not been cleared or approved by the US Food and Drug Administration. This assay has been validated pursuant to the CLIA regulations and is used for clinical purposes. Specimen Narrative Performed At FASTING:YES [facility] FASTING: YES Resulting Agency Comment Performing Organization Information: Site ID: [id number] Name: [facility] Address: [address] [place] [address] Director: Tyrell Patton M.D., Ph.D Performing Organization Address [facility] Phone Number [place] [address] [place] [address] [place] * Prostate specific antigen (09/15/2018 11:12 AM ORNAMENTAL PLASTER STICKER) PSA 0.5 < OR=4.0 ng/mL [facility] Comment: DIAGNOSTICS The total PSA value from this [facility] assay system is standardized against the WHO standard. The test result will be approximately 20% lower when compared to the equimolar-standardized total PSA ([place]). Comparison of serial PSA results should be [...] Performing Organization Information: Site ID: [id number] Name: [facility] Address: [address] [place] [phone] Director: Natalie Ball Performing Organization Address [facility] Phone Number [facility] [place] [place] [address] * Creatine kinase, total (CPK) (09/15/2018 11:12 AM ORNAMENTAL PLASTER STICKER) Creatine kinase 114 44 - 196 U/L [facility] Specimen Narrative Performed At FASTING:YES [facility] FASTING: YES Resulting Agency Comment Performing Organization Information: Site ID: [id number] Name: [facility] Address: [address] [place] [phone] Director: Natalie Ball Performing Organization Address [facility] Phone Number [facility] [place] [place] [address] * Lipid panel (09/15/2018 11:12 AM ORNAMENTAL PLASTER STICKER) Cholesterol, 201 (H) <200 mg/dL [facility] total [facility] HDL cholesterol 56 >40 mg/dL [facility] Triglycerides 129 <150 mg/dL [facility] LDL cholesterol 121 (H) mg/dL (calc) [facility] calculated Comment: DIAGNOSTICS Reference range: <100 [facility] Desirable range <100 mg/dL for primary prevention; <70 mg/dL for patients with CHD or diabetic patients with > or=2 CHD risk factors. LDL-C is now calculated using the Franklyn-Mcdonald calculation, which is a validated novel method providing better accuracy than the Friedewald equation in the estimation of LDL-C. Franklyn SS et al. KARLY. 2013;310(19): 5446-6837 (http://education.SolveBoard.CoolaData/faq/BYD858) Cholesterol/HDL 3.6 <5.0 (calc) [facility] ratio DIAGNOSTICS [facility] Non-HDL 145 (H) <130 mg/dL (calc) [facility] cholesterol Comment: DIAGNOSTICS For patients with diabetes [facility] plus 1 major ASCVD risk factor, treating to a non-HDL-C goal of <100 mg/dL (LDL-C of <70 mg/dL) is considered a therapeutic option. Specimen Narrative Performed At FASTING:YES [facility] FASTING: YES Resulting Agency Comment Performing Organization Information: Site ID: [id number] Name: [facility] Address: [address] [place] [phone] Director: Natalie Ball Performing Organization Address City/State/Zipcode Phone Number [facility] [place] [address] [place] [phone] after 06/02/2018 Insurance Type Payer Benefit Subscriber ID Effective Phone Address Plan / Dates Group HMO AETNA AETNA xxxxxxxxxx 2005-P HMO,POS,EP resent O, MC/EC Advance Directives Patient has advance care planning documents, and code status on file. For more i nformation, please contact: Shiraz Freire [address] [place] [address] Date Inactivated Comments Code Status Date Activated 10/07/2018 4:59 PM Full Code 10/05/2018 2:01 AM Code Status decision reached by: Patient
--- OUTSIDE RECORDS SUMMARY | 2019-06-03 21:28 | XMS REPORT | Continuity of Care Document ---
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 [employer] Unavailable Unavailable Problems Problem Status Onset Date Classification Date Reported Comments Source Ulcerative colitis 12/17/2018 Diagnosis 12/17/2018 [facility] Body mass index 25-29 - overweight 12/17/2018 Diagnosis 12/17/2018 [facility] Depression screening 12/17/2018 Diagnosis 12/17/2018 [facility] Acute meniscal tear, lateral 12/17/2018 Diagnosis 12/17/2018 [facility] Generalized anxiety disorder 12/17/2018 Diagnosis 12/17/2018 [facility] Chronic insomnia 12/17/2018 Diagnosis 12/17/2018 [facility] Generalized Anxiety Disorder 12/17/2018 Problem 12/17/2018 [facility] Ulcerative Colitis 12/17/2018 Problem 12/17/2018 [facility] Chronic Insomnia 12/17/2018 Problem 12/17/2018 [facility] 097 - OTH UNSPEC SY Active 04/27/2015 [facility] 724.2 - LUMBAGO Active 01/05/2015 [facility] Cough Active Problem 02/21/2019 [facility] Sore throat Active Problem 02/21/2019 [facility] Elevated blood pressure reading Active Problem 02/21/2019 [facility] PND (Confirmed) Active Problem 02/21/2019 [facility] Sinusitis Active Problem 02/21/2019 [facility] Medications Medication Details Route Status Patient Instructions Ordering Provider Order Date Source benzonatate 200 MG Oral Capsule [Tessalon] 200 mg=1 cap, PO, TID, X 10 day, # 30 cap, 0 Refill(s), Pharmacy: [facility]/pharmacy #[id number] Active 02/18/2019 [facility] Azithromycin 5 Day Dose Pack 250 mg oral tablet See Instructions, Take 2 tablets by mouth the first day then 1 tablet by mouth days 2-5., X 5 day, # 6 tab, 0 Refill(s), Pharmacy: [facility]/pharmacy #[id number] Active 02/18/2019 [facility] Azelastine hydrochloride 0.137 MG/ACTUAT Metered Dose Nasal [place] [Astelin] 2 spray, NASAL, BID, # 1 ea, 0 Refill(s), Pharmacy: [facility]/pharmacy #[id number] Active 11/04/2017 [facility] Codeine Phosphate 2 MG/ML / Guaifenesin 20 MG/ML Oral Solution 10 mL, PO, Bedtime, PRN for cough, X 7 day, # 100 mL, 0 Refill(s) No Longer Active 11/04/2017 [facility] Oseltamivir 75 MG Oral Capsule [Tamiflu] 75 mg, PO, Q12H, X 5 day, # 10 cap, 0 Refill(s) No Longer Active 11/04/2017 [facility] Azelastine hydrochloride 0.137 MG/ACTUAT Metered Dose Nasal [place] azelastine 137 mcg (0.1 %) nasal spray aerosol Blue [place] 1 spray every day by nasal route as needed for 30 days. Active [facility] Escitalopram 10 MG Oral Tablet escitalopram 10 mg tablet take 1 tablet po daily Active [facility] Acetaminophen 325 MG / Hydrocodone Bitartrate 5 MG Oral Tablet hydrocodone 5 mg-acetaminophen 325 mg tablet Take 1 tablet every 6 hours by oral route. Active [facility] Prednisone 10 MG Oral Tablet prednisone 10 mg tablet Take 1 tablet every day by oral route. Active [facility] Zolpidem tartrate 10 MG Oral Tablet zolpidem 10 mg tablet Take 1 tablet every day by oral route. [facility] Allergies, Adverse Reactions, Alerts Substance Category Reaction Severity Reaction type Status Date Reported Comments Source No Known Medication Allergies Assertion Drug allergy [facility] Immunizations Immunization Date Given Site Status Last Updated Comments Source influenza virus vaccine, inactivated 08/03/2018 completed [facility] influenza virus vaccine, inactivated 07/27/2017 completed [facility] Results No Data Provided for This Section [...] or significant central canal stenosis. 05/22/2015 [facility] Spine lumbar 2 or 3 views DX [...] spaces of the lumbar spine. 01/05/2015 [facility] Consultation Notes No Data Provided for This Section Discharge Summaries No Data Provided for This Section History and Physicals No Data Provided for This Section Vital Signs Vital Sign Value Date Comments Source Weight 106.455 02/18/2019 [facility] Height 190.5 cm 02/18/2019 [facility] Heart Rate 86 02/18/2019 [facility] Respitory Rate 16 02/18/2019 [facility] Temperature Oral (F) 97.9 F 02/18/2019 [facility] Systolic (mm Hg) 151 02/18/2019 [facility] Diastolic (mm Hg) 94 02/18/2019 [facility] BMI Calculated 29.33 02/18/2019 [facility] Diastolic (mm Hg) 88 12/17/2018 [facility] Height 75 12/17/2018 [facility] Systolic (mm Hg) 140 12/17/2018 [facility] Weight 222.6 12/17/2018 [facility] Systolic (mm Hg) 110 11/04/2017 [...] Provider ADM Date DC Date Status Source [facility] [id number] Eliu Warduilar 01/05/2015 01/06/2015 [facility] [id number] Eliu Warduilar 05/22/2015 05/23/2015 [facility] [id number] BRIANNE HOANG 09/23/2016 [facility] Outpatient [id number] CAROL COLBY 10/30/2016 [facility] Outpatient [id number] CAROL COLBY 11/04/2017 [facility] Outpatient [id number] 11/04/2017 11/05/2017 [facility] [place] - [facility] - [facility] Eliu Larry MD: [id number], [address], [place] [address], Ph. [id number] Eliu Larry 12/17/2018 [facility] Outpatient [id number] Carol Colby 02/18/2019 [facility] Outpatient [id number] 02/18/2019 02/19/2019 Medical [facility] Procedures Procedure Code Date Perfomer Comments Source Knee joint operation [id number] [facility] Nose operation [id number] [facility] Shoulder joint operations [id number] [facility] Tonsillectomy [id number] [facility] Assessment and Plan No Data Provided for This Section Plan of Care No Data Provided for This Section Social History Social History Date Source Smoking Status Never Smoker 12/17/2018 [facility] Social History TypeResponse Substance Abuse Use: None. Exercise Exercise frequency: Daily. 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 Alcohol Current Smoking Status Never smoker; Exposure to Tobacco Smoke None; Cigarette Smoking Last 365 Days No; Reg Smoking Cessation Counseling No entered on: 02/18/19 11/04/2017 [facility] No data available for this section 05/23/2015 [facility] No data available for this section 01/06/2015 [facility] Family History No Data Provided for This Section Advance Directives No Data Provided for This Section Functional Status No Data Provided for This Section
[2019-06-03] MEDS: ONDANSETRON HCL INJ 2MG/ML 2ML 2 MG/ML VIAL IV STA (22:34)
[2019-06-03] MEDS: MORPHINE SULFATE 5 MG/ML VIAL IV ONE (22:50)
[2019-06-03] MEDS ORDERED: MORPHINE SULFATE 2 MG/ML SYR 1ML ONE (22:50)
[2019-06-03] MEDS ORDERED: MORPHINE SULFATE INJ 4 MG/ML INJ 1ML ONE (22:50)
[2019-06-03 23:12] LABS: BASOPHILS % 0.3 % (0.0-1.0); EOSINOPHILS # (AUTO) 0.1 (0.0-0.4); EOSINOPHILS % 1.6 % (0.0-6.0); HEMATOCRIT 38.5 % (38.2-49.6); HEMOGLOBIN 13.1 g/dL (14.0-18.0); LYMPHOCYTES # (AUTO) 0.8 (1.0-3.2); LYMPHOCYTES % 11.3 % (18.0-39.1); MEAN CORPUSCULAR HEMOGLOBIN 31.5 pg (28-32); MEAN CORPUSCULAR VOLUME 92.5 fL (81-99); MONOCYTES # (AUTO) 0.7 (0.2-0.8); MONOCYTES % 9.5 % (4.4-11.3); NEUTROPHILS # (AUTO) 5.6 (2.1-6.9); NEUTROPHILS % 76.9 % (38.7-80.0); PLATELET COUNT 191 x10e3/uL (140-360); RED BLOOD COUNT 4.16 x10e6/uL (4.3-5.7); RED CELL DISTRIBUTION WIDTH 12.4 % (11.7-14.4)
--- NOTE | 2019-06-03 23:32 | Diagnostic Imaging Report ---
EXAMINATION: CHEST SINGLE (PORTABLE) INDICATION: COMPARISON: None FINDINGS: TUBES and LINES: None. LUNGS: Lungs are well inflated. Left basilar linear atelectasis versus scarring. There is no evidence of pneumonia or pulmonary edema. PLEURA: No pleural effusion or pneumothorax. HEART AND MEDIASTINUM: The cardiomediastinal silhouette is unremarkable. BONES AND SOFT TISSUES: No acute osseous lesion. UPPER ABDOMEN: No free air under the diaphragm. IMPRESSION: No acute thoracic abnormality. Signed by: Dr. Larry Marks M.D. on 06/03/2019 11:29 PM
[2019-06-03 23:37] LABS: ALANINE AMINOTRANSFERASE 31 IU/L (0-55); ALBUMIN 3.7 g/dL (3.5-5.0); ALBUMIN/GLOBULIN RATIO 1.3 (0.8-2.0); ALKALINE PHOSPHATASE 159 IU/L (40-150); ANION GAP 16.1 mmol/L (8-16); BLOOD UREA NITROGEN 21 mg/dL (7-26); BUN/CREATININE RATIO 18 (6-25); CALCIUM 9.5 mg/dL (8.4-10.2); CARBON DIOXIDE 24 mmol/L (22-29); CHLORIDE 103 mmol/L (98-107); EST GLOMERULAR FILTRATION RATE > 60 ML/MIN (60-); GLUCOSE 86 mg/dL (74-118); POTASSIUM 4.1 mmol/L (3.5-5.1); SODIUM 139 mmol/L (136-145)
[2019-06-04] MEDS ORDERED: ONDANSETRON HCL INJ 2MG/ML 2ML 2 MG/ML VIAL ONE (02:51)
[2019-06-04] MEDS: HYDROMORPHONE 2MG/ML 2 MG/ML ML IV ONE (02:54)
== END 2019-06-04 03:20 | disposition home or self-care (01) ==
LOC: ER 21:24
DX: R50.9 Fever, unspecified (principal)
CPT/HCPCS: 36415; 71045; 80053; 83605; 85025; 87040; 93971; 96374; 99284; J1170; J2270 ×3; J2405 ×2

== ENCOUNTER 2019-06-24 16:00 | Outpatient (RCR) | payer BC | END 2019-06-26 | LOC: PT 16:00 | PROVIDERS: ATTEND Orthopaedic Surgery | DX: S83.200D Bucket-handle tear of unspecified meniscus, current injury, right knee, subsequent encounter (principal); M25.561 Pain in right knee; M62.81 Muscle weakness (generalized); R26.9 Unspecified abnormalities of gait and mobility | CPT/HCPCS: 97010 ×2; 97110 ×4; 97161; G0283 ==

== ENCOUNTER 2019-07-20 16:00 | Outpatient (RCR) | payer BC | END 2019-07-26 | LOC: PT 16:00 | PROVIDERS: ATTEND Orthopaedic Surgery | DX: S83.200D Bucket-handle tear of unspecified meniscus, current injury, right knee, subsequent encounter (principal); M62.81 Muscle weakness (generalized); R26.9 Unspecified abnormalities of gait and mobility; M25.561 Pain in right knee | CPT/HCPCS: 97139 ==

== ENCOUNTER 2020-03-15 15:53 | Outpatient (RCR) | payer BC | END 2020-03-26 | LOC: PT 15:53 | PROVIDERS: ATTEND Orthopaedic Surgery | DX: S83.200D Bucket-handle tear of unspecified meniscus, current injury, right knee, subsequent encounter (principal); M25.561 Pain in right knee; M62.81 Muscle weakness (generalized); R26.9 Unspecified abnormalities of gait and mobility ==